=== PATIENT | female | born 1985 | race Asian ===

== ENCOUNTER 2024-07-26 12:55 | Outpatient (REF) | payer OTHER, SELFPAY ==
[2024-07-26 14:28] LABS: MANUAL DIFF FLAG NO
[2024-07-26 14:39] LABS: Basophils Absolute Auto 0.1 X10*3/uL (0.0-0.2); Basophils Percent Auto 0.9 % (0-2); Eosinophils Absolute Auto 0.2 X10*3/uL (0.0-0.4); Eosinophils Percent Auto 2.5 % (0-4); Hematocrit 39.7 % (37.0-47.0); Hemoglobin 13.4 g/dl (12.0-16.0); Imm Gran Abs Auto 0.02 X10*3/uL (0.00-0.03); Imm Gran Pct Auto 0.2 % (0.0-0.4); Lymphocytes Absolute Auto 2.3 X10*3/uL (1.2-4.9); Lymphocytes Percent Auto 28.5 % (20-40); Mean Corpuscular HGB Conc 33.8 g/dl (31.0-35.0); Mean Corpuscular Hemoglobin 32.1 pg (27.0-33.0); Mean Corpuscular Volume 95.2 fL (80.0-98.0); Mean Platelet Volume 9.6 fL (9.4-12.3); Monocytes Absolute Auto 0.4 X10*3/uL (0.1-1.2); Monocytes Percent Auto 5.3 % (2-11); Neutrophils Absolute Auto 5.1 x10*3/uL (2.0-8.3); Neutrophils Percent Auto 62.6 % (45-73); Platelet Count 377 X10*3/uL (160-400); Red Blood Count 4.17 X10*6/uL (4.20-5.50); Red Cell Distribution Width 11.4 % (11.0-16.0); White Blood Count 8.1 X10*3/uL (4.8-10.8)
[2024-07-26 14:55] LABS: C Reactive Protein 0.11 mg/dL (< or = 0.50)
[2024-07-26 15:16] LABS: Erythrocyte Sedimentation Rate 13 MM/HR (0-20)
== END 2024-07-26 12:56 | disposition home or self-care (01) ==
LOC: HO.CHCLDS 12:55
PROVIDERS: Visit Provider Internal Medicine
DX: R51.9 Headache, unspecified (principal)
CPT/HCPCS: 36415; 85025; 85652; 86140

== ENCOUNTER 2024-11-18 11:44 | Outpatient (REF) | payer OTHER, SELFPAY ==
--- OUTSIDE RECORDS SUMMARY | 2024-11-18 14:09 | XMS_ITS | Encounter Summary ---
Author Organization [employer] Address [address] [place] [address] Care Team Providers Care Waste Oil Pumper Name Role Phone Jake Bird MD Primary Care Prov ider Maya Wood Primary Care Provider [phone] Jake Bird MD Primary Care Prov ider Ely iSn MD Primary Care Provider [phone] Reason for Visit * Reason Onset Date Comments new pt visit 07/11/2024 Encounter Details Date Type Department Care Team (Late st Contact Info) Description 07/11/2024 Telephone [facility] MEDICINE [address] [place] [address] Jake Bird MD [address] [place], [place] [phone] new pt visit Social History Tobacco Use Types Packs/Day Years Used Date Smoking Tobacco: Never Assessed Comments Unknown Sex and Gender Information Value Date Recorded Sex Assigned at Female 07/07/2024 10:21 AM EDT Legal Sex Female 10:20 AM EDT Gender Identity Female 07/19/2024 11:54 AM EDT Sexual Orientation Straight 07/19/2024 11 :54 AM EDT documented as of this encounter Miscellaneous Notes * Telephone Encounter - Dorota Gorman - 07/25/2024 1:50 [address] EST Good [address]. Moses, in order to proceed with referrals chart note will require more details on why referral is being placed. Thank you. * Telephone Encounter - Sebastiankassi Mullinsarez - 07/11/2024 1:40 PM EDT TC placed to patient for scheduling of new patient visit. Agreed to 07/[address] Moses Medical Conditions: inflammation of temporal artery Apptmnt reminder and release form sent via mail . documented in this encounter Plan of Treatment Upcoming Encounters Date Type Department Care Team (Late st Contact Info) Description 01/06/2025 11:00 AM EDT Office Visit [facility] MEDICINE [address] [place] [address] Ely Sin MD [address] [place] [address] 02/03/2025 11:15 AM EDT Procedure Visit [address] [address] Ely Sin MD [address] [place] [address] documented as of this encounter Visit Diagnoses Not on filedocumented in this encounter Care Teams Waste Oil Pumper Relationship Specialty Start Date End Date Jake Bird MD [address] [place] [address] PCP - General Internal Medicine 07/19/24 09/06/24 Maya Wood FNP [address] [place] [address] PCP - General Family Medicine 09/07/24 10/05/24 Jake Bird MD [address] [place] [address] PCP - General Internal Medicine 10/06/24 10/12/24 Ely Sin MD [address] [place] [address] PCP - General Family Medicine 10/13/24 documented as of this encounter
--- OUTSIDE RECORDS SUMMARY | 2024-11-18 14:09 | XMS_ITS | Encounter Summary ---
Author Organization [employer] Address [address] [place] [address] [place] [address] Care Team Providers Care Behavioral Health Counselor Name Role Phone Jake Bird MD Primary Care Prov ider Maya Wood Primary Care Provider [phone] Jake Bird MD Primary Care Prov ider Ely Sin MD Primary Care Provider [phone] Encounter Details Date Type Department Care Team ([facility] st Contact Info) Description 08/08/2024 Telephone [facility] MED & PEDS [address] [place], [place] [phone] Jake Bird MD [address] [place], [place] [phone] Social History Tobacco Use Types Packs/Day Years Used Date Smoking Tobacco: Never Smokeless Tobacco: Never Alcohol Use Standard Drinks/Week Comments Never 0 (1 standard drink = 0.6 oz pur e alcohol) Comments Unknown Sex and Gender Information Value Date Recorded Sex Assigned at Female 07/07/2024 10:21 AM EDT Legal Sex Female 10:20 AM EDT Gender Identity Female 07/19/2024 11:54 AM EDT Sexual Orientation Straight 07/19/2024 11 :54 AM EDT documented as of this encounter Miscellaneous Notes * Telephone Encounter - Sandra Arevalo - 08/08/2024 12:04 PM EST Tc from pt stating she received a phone call. No documentation. Contact pt at [phone] documented in this encounter Plan of Treatment Upcoming Encounters Date Type Department Care Team (Late st Contact Info) Description 01/06/2025 11:00 AM EDT Office Visit [address] [address] Ely Sin MD [address] [place] [address] 02/03/2025 11:15 AM EDT Procedure Visit [address] [address] Ely Sin MD [address] [place] [address] documented as of this encounter Visit Diagnoses Not on filedocumented in this encounter Care Teams Behavioral Health Counselor Relationship Specialty Start Date End Date Jake Brid MD [address] [place] [address] PCP - General Internal Medicine 07/19/24 09/06/24 Maya Wood FNP [address] [place] [address] PCP - General Family Medicine 09/07/24 10/05/24 Jake Bird MD [address] [place] [address] PCP - General Internal Medicine 10/06/24 10/12/24 Ely Sin MD [address] [place] [address] PCP - General Family Medicine 10/13/24 documented as of this encounter
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
--- OUTSIDE RECORDS SUMMARY | 2024-11-18 14:09 | XMS_ITS | Encounter Summary ---
Author Organization [employer] Address [address] [place] [address] Care Team Providers Care Automotive Tire Technician Name Role Phone Ely Sin MD Primary Care Provider [phone] Reason for Visit * Reason Onset Date Comments MRI BRAIN ORDER 11/09/2024 Encounter Details Date Type Department Care Team (Late st Contact Info) Description 11/09/2024 Telephone [employer] [facility] [address] [place] [address] Ely Sin MD [address] [place] [address] MRI BRAIN ORDER Social History Tobacco Use Types Packs/Day Years [...] encounter Miscellaneous Notes * Telephone Encounter - Pao Desouza - 11/09/2024 3:34 PM EST Incoming fax from [facility], What is the indication for contrast? documented in this encounter Plan of Treatment Upcoming Encounters Date Type Department Care Team (Late st Contact Info) Description 01/06/2025 11:00 AM EDT Office Visit [address] [address] Ely Sin MD [address] [place] [address] 02/03/2025 11:15 AM EDT Procedure Visit [address] [phone] Ely Sin MD [address] [place], [place] [phone] documented as of this encounter Visit Diagnoses Not on filedocumented in this encounter Care Teams Automotive Tire Technician Relationship Specialty Start Date End Date Ely Sin MD [address] [place] [address] [phone] PCP - General Family Medicine 10/13/24 documented as of this encounter
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
--- OUTSIDE RECORDS SUMMARY | 2024-11-18 14:09 | XMS_ITS | Encounter Summary ---
Author Organization [employer] Address [address] [place] [address] 7 [place] [address] Care Team Providers Care Gas Flow Regulator Name Role Phone Ely Sin MD Primary Care Provider [phone] Reason for Visit * Reason Comments Pre-visit Planning (Unable to reach for PVP screening, LVM) Encounter Details Date Type Department Care Team ([facility] st Contact Info) Description 10/24/2024 Patient Outreach [facility] MEDICINE [address] [place] [address] Ely Sin MD [address] [place] [address] Pre-visit Planning ((Unable to reach for PVP screening, LVM)) Social History Tobacco Use Types Packs/Day Years [...] AM EDT documented as of this encounter Progress Notes * Teresa Zavala - 10/24/2024 8:40 AM EST KARY [place] placed outbound call to patient to complete pre-visit planning. No answer at this time. Patient name and were not confirmed. CC left voicemail requesting return call. Direct contact information provided. documented in this encounter Plan of Treatment Upcoming Encounters Date Type Department Care Team (Late st Contact Info) Description 01/06/2025 11:00 AM EDT Office Visit [facility] MEDICINE [address] [place] [address] Ely Sin MD [address] [place] [address] [phone] 02/03/2025 11:15 AM EDT Procedure Visit [address] [phone] Ely Sin MD [address] [place] [address] [phone] documented as of this encounter Visit Diagnoses Not on filedocumented in this encounter Care Teams Gas Flow Regulator Relationship Specialty Start Date End Date Ely Sin MD [address] [place] [address] [phone] PCP - General Family Medicine 10/13/24 documented as of this encounter
--- OUTSIDE RECORDS SUMMARY | 2024-11-18 14:09 | XMS_ITS | Encounter Summary ---
Author Organization [employer] Address [address] [place] [address] Care Team Providers Care Propeller Tester Name Role Phone Jake Bird MD Primary Care Prov ider Maya Wood Primary Care Provider [phone] Jake Bird MD Primary Care Prov ider Ely Sin MD Primary Care Provider [phone] Reason for Visit * Reason Onset Date Comments Created In Error 07/11/2024 Encounter Details Date Type Department Care Team (Late st Contact Info) Description 07/11/2024 Telephone [facility] MEDICINE [address] [place] [address] [phone] Maya Wood FNP [address] [place], [place] [phone] Created In Error Social History Tobacco Use Types Packs/Day Years Used Date Smoking Tobacco: Never Assessed Comments Unknown Sex and Gender Information Value Date Recorded Sex Assigned at Female 07/07/2024 10:21 AM EDT Legal Sex Female 10:20 AM EDT Gender Identity Female 07/19/2024 11:54 AM EDT Sexual Orientation Straight 07/19/2024 11 :54 AM EDT documented as of this encounter Plan of Treatment Upcoming Encounters Date Type Department Care Team (Late st Contact Info) Description 01/06/2025 11:00 AM EDT Office Visit [facility] [address] [place] [address] Ely Sin MD [address] [place], [place] [phone] 02/03/2025 11:15 AM EDT Procedure Visit [facility] [address] [place], [place] [phone] Ely Sin MD [address] [place], [place] [phone] documented as of this encounter Visit Diagnoses Not on filedocumented in this encounter Care Teams Propeller Tester Relationship Specialty Start Date End Date Jake Bird MD [address] [place] [address] PCP - General Internal Medicine 07/19/24 09/06/24 Maya Wood FNP [address] [place] [address] PCP - General Family Medicine 09/07/24 10/05/24 Jake Bird MD [address] [place] [address] PCP - General Internal Medicine 10/06/24 10/12/24 Ely Sin MD [address] [place] [address] PCP - General Family Medicine 10/13/24 documented as of this encounter
--- OUTSIDE RECORDS SUMMARY | 2024-11-18 14:09 | XMS_ITS | Encounter Summary ---
Author Organization [employer] Address [address] [place] [address] 20030 Care Team Providers Care Bowling Ball Assembler Name Role Phone Jake Bird MD Primary Care Prov ider Myaa Wood Primary Care Provider [phone] Jake Bird MD Primary Care Prov ider Ely Sin MD Primary Care Provider Reason for Visit * Reason Onset Date Comments Referral 08/15/2024 Encounter Details Date Type Department Care Team (Late st Contact Info) Description 08/15/2024 Telephone [facility] MED & PEDS [address] [place], [place] [phone] Jake Bird MD [address] [place], [place] [phone] Referral Social History Tobacco Use Types Packs/Day Years [...] encounter Miscellaneous Notes * Telephone Encounter - Gisela Zavala - 08/15/2024 3:13 PM EST TC from pt requesting status on neurology referral . Mud Worker informed referral was not able to be processed due to needing more information by pcp. Please call pt to clarify. documented in this encounter Plan of Treatment Upcoming Encounters Date Type Department Care Team (Late st Contact Info) Description 01/06/2025 11:00 AM EDT Office Visit [facility] MEDICINE [address] [place] [address] Ely Sin MD [address] [place] [address] 02/03/2025 11:15 AM EDT Procedure Visit [facility] [address] [place] [address] Ely Sin MD 230 [place] [address] documented as of this encounter Visit Diagnoses Not on filedocumented in this encounter Care Teams Bowling Ball Assembler Relationship Specialty Start Date End Date Jake Bird MD [address] [place] [address] PCP - General Internal Medicine 07/19/24 09/06/24 Maya Wood FNP [address] [place] [address] PCP - General Family Medicine 09/07/24 10/05/24 Jake Bird MD [address] [place] [address] PCP - General Internal Medicine 10/06/24 10/12/24 Ely Sin MD [address] [place] [address] PCP - General Family Medicine 10/13/24 documented as of this encounter
--- OUTSIDE RECORDS SUMMARY | 2024-11-18 14:09 | XMS_ITS | Encounter Summary ---
Author Organization [employer] Address [address] [place] [address] 7t [place] [address] Care Team Providers Care Safety Counselor Name Role Phone Ely Sin MD Primary Care Provider [phone] Encounter Details Date Type Department Care Team (Latest Contact Info) Description 11/04/2024 Travel Social History Tobacco Use Types Packs/Day Years [...] Description 01/06/2025 11:00 AM EDT Office Visit [facility] MEDICINE [address] [place] [address] Ely Sin MD [address] [place] [address] 02/03/2025 11:15 AM EDT Procedure Visit [facility] MED[facility]INE [address] [place] [address] Ely Sin MD [address] [place] [address] documented as of this encounter Visit Diagnoses Not on filedocumented in this encounter Care Teams Safety Counselor Relationship Specialty Start Date End Date Ely Sin MD 230 [place] [address] PCP - General Family Medicine 10/13/24 documented as of this encounter
--- OUTSIDE RECORDS SUMMARY | 2024-11-18 14:10 | XMS_ITS | Encounter Summary ---
Author Organization [employer] Address [address] [place] [address] 7 [place] [address] Care Team Providers Care Biology Instructor Name Role Phone Ely Sin MD Primary Care Provider [phone] Encounter Details Date Type Department Care Team (Late st Contact Info) Description 10/24/2024 Orders Only [facility] MEDICINE [address] [place] [address] ProviderRoman MD Social History Tobacco Use Types Packs/Day Years [...] Description 01/06/2025 11:00 AM EDT Office Visit [facility] MEDICINE [address] [place] [address] Ely Sin MD [address] [place] [address] 02/03/2025 11:15 AM EDT Procedure Visit [facility] MEDICINE [address] [place] [address] Ely Sin MD [address] [place] [address] [phone] documented as of this encounter Procedures Procedure Name Priority Date/Time Associated Diagnosis Comments PAP/HPV Routine 03/09/2020 8:05 AM EDT documented in this encounter Results * PAP/HPV (03/09/2020 8:05 AM EDT) us Historical Provider HEALTH MAINTENANCE Final Result documented in this encounter Visit Diagnoses Not on filedocumented in this encounter Care Teams Biology Instructor Relationship Specialty Start Date End Date Ely Sin MD 230 [place] [address] PCP - General Family Medicine 10/13/24 documented as of this encounter
--- OUTSIDE RECORDS SUMMARY | 2024-11-18 14:10 | XMS_ITS | Encounter Summary ---
Author Organization [employer] Address [address] [place] [address] [place] [address] Care Team Providers Care Mrp Controller Name Role Phone Ely Sin MD Primary Care Provider [phone] Encounter Details Date Type Department Care Team (Late st Contact Info) Description 10/13/2024 Orders Only [facility] CHC MED & PEDS 505 [place], [place] [phone] Jake Bird MD [address] [place] [address] Social History Tobacco Use Types Packs/Day Years [...] Description 01/06/2025 11:00 AM EDT Office Visit [facility] MEDICINE [address] [place] [address] [phone] Ely Sin MD [address] [place] [address] [phone] 02/03/2025 11:15 AM EDT Procedure Visit [facility] MEDICINE [address] [place] [address] Ely Sin MD 230 [place] [address] documented as of this encounter Visit Diagnoses Not on filedocumented in this encounter Care Teams Mrp Controller Relationship Specialty Start Date End Date Ely Sin MD [address] [place] [address] PCP - General Family Medicine 10/13/24 documented as of this encounter
[2024-11-18 16:30] LABS: Alanine Aminotransferase 19 U/L (0-31); Albumin Level 4.1 g/dL (3.5-5.0); Anion Gap 11 (12-20); Aspartate Amino Transferase 24 U/L (5-31); Bilirubin Total 0.5 mg/dL (0.0-1.0); Blood Urea Nitrogen 13 mg/dL (9-16); Calcium 9.1 mg/dL (8.4-10.2); Carbon Dioxide 25 mmol/L (22-29); Chloride 107 mmol/L (96-108); Cholesterol 190 mg/dL (<200); Estimated Glomerular Filt Rate > 60; Glucose Random 93 mg/dL (60-115); HDL Cholesterol 53 mg/dL (>40); LDL Cholesterol Calculated 123 mg/dL (<100); Potassium 4.1 mmol/L (3.3-5.1); Sodium 139 mmol/L (135-145); Total Protein 7.7 g/dL (6.5-8.0); Triglycerides 70 mg/dL (<150)
[2024-11-18 17:54] LABS: Alkaline Phosphatase 65 U/L (39-117)
== END 2024-11-18 11:45 | disposition home or self-care (01) ==
LOC: HO.CHCLDS 11:44
PROVIDERS: Visit Provider General Practice
DX: E66.3 Overweight (principal); Z13.29 Encounter for screening for other suspected endocrine disorder
CPT/HCPCS: 36415; 80053; 80061; 84443

== ENCOUNTER 2024-11-23 10:47 | Outpatient (REF) | payer OTHER, SELFPAY ==
--- OUTSIDE RECORDS SUMMARY | 2024-11-23 12:59 | XMS_ITS | Encounter Summary ---
Author Organization [email or web address] Address [address] [place] [address] 7 [place] [address] Care Team Providers Care Special Delivery Carrier Name Role Phone Ely Sin MD Primary Care Provider [phone] Reason for Visit * Reason Onset Date Comments MRI 11/23/2024 Encounter Details Date Type Department Care Team (Late st Contact Info) Description 11/23/2024 Telephone [facility] MEDICINE 230 [place] [address] Ely Sin MD 230 [place] [address] MRI Social History Tobacco Use Types Packs/Day Years [...] encounter Miscellaneous Notes * Telephone Encounter - Carolina Johnson RN - 11/23/2024 9:08 AM EST TC returned to patient [phone] in regards to below message. Patient did not answer, RN left VMrequesting CB to red team nurses. Patient to f/u PRN. * Telephone Encounter - Sandra Arevalo - 11/23/2024 8:46 AM EST Tc from pt requesting a a call back. Pt is inquiring if she is able to eat or drink before MRI. Contact pt at [phone] documented in this encounter Plan of Treatment Upcoming Encounters Date Type Department Care Team (Late st Contact Info) Description 01/06/2025 11:00 AM EDT Office Visit [address] [address] Ely Sin MD [address] [place] [address] 02/03/2025 11:15 AM EDT Procedure Visit [address] [address] Ely Sin MD [address] [place] [address] documented as of this encounter Visit Diagnoses Not on filedocumented in this encounter Care Teams Special Delivery Carrier Relationship Specialty Start Date End Date Ely Sin MD [address] [place] [address] PCP - General Family Medicine 10/13/24 documented as of this encounter
--- OUTSIDE RECORDS SUMMARY | 2024-11-23 12:59 | XMS_ITS | Encounter Summary ---
Author Organization [employer] Address [address] [place] [address] Care Team Providers Care Fruit Distributor Name Role Phone Ely Sin MD Primary Care Provider [phone] Reason for Visit * Reason Onset Date Comments MRI BRAIN ORDER 11/09/2024 Encounter Details Date Type Department Care Team (Late st Contact Info) Description 11/09/2024 Telephone [employer] [facility] [address] [place] [address] Ely Sin MD [address] [place] [address] MRI BRAIN ORDER Social History Tobacco Use [...] 11/09/2024 3:34 PM EST Incoming fax from [facility] What is the indication for contrast? documented in this encounter Plan of Treatment Upcoming Encounters Date Type Department Care Team (Late st Contact Info) Description 01/06/2025 11:00 AM EDT Office Visit [address] [address] Ely Sin MD 230 [place] [address] 02/03/2025 11:15 AM EDT Procedure Visit [address] [phone] Ely Sin MD [address] [place], [place] [phone] documented as of this encounter Visit Diagnoses Not on filedocumented in this encounter Care Teams Fruit Distributor Relationship Specialty Start Date End Date Ely Sin MD [address] [place] [address] [phone] PCP - General Family Medicine 10/13/24 documented as of this encounter
--- OUTSIDE RECORDS SUMMARY | 2024-11-23 12:59 | XMS_ITS | Encounter Summary ---
Author Organization [employer] Address [address] [place] [address] 7 [place] [address] Care Team Providers Care Computer Information Systems Professor Name Role Phone Ely Sin MD Primary Care Provider [phone] Reason for Visit * Reason Comments Pre-visit Planning (Unable to reach for PVP screening, LVM) Encounter Details Date Type Department Care Team ([facility] st Contact Info) Description 10/24/2024 Patient Outreach [facility] 230 [place] [address] Ely Sin MD 230 [place] [address] Pre-visit Planning ((Unable to reach for PVP [...] Description 01/06/2025 11:00 AM EDT Office Visit [facility] [address] [place] [address] Ely Sin MD [address] [place] [address] [phone] 02/03/2025 11:15 AM EDT Procedure Visit [address] [phone] Ely Sin MD [address] [place] [address] [phone] documented as of this encounter Visit Diagnoses Not on filedocumented in this encounter Care Teams Computer Information Systems Professor Relationship Specialty Start Date End Date Ely Sin MD [address] [place] [address] [phone] PCP - General Family Medicine 10/13/24 documented as of this encounter
--- OUTSIDE RECORDS SUMMARY | 2024-11-23 12:59 | XMS_ITS | Encounter Summary ---
Author Organization [employer] Address [address] [place] [address] 7t [place] [address] Care Team Providers Care Customer Service Administrator Name Role Phone Ely Sin MD Primary Care Provider [phone] Encounter Details Date Type Department Care Team [...] Description 01/06/2025 11:00 AM EDT Office Visit [facility] MEDICINE [address] [place] [address] Ely Sin MD [address] [place] [address] 02/03/2025 11:15 AM EDT Procedure Visit [facility] MEDICINE [address] [place] [address] Ely Sin MD [address] [place] [address] documented as of this encounter Visit Diagnoses Not on filedocumented in this encounter Care Teams Customer Service Administrator Relationship Specialty Start Date End Date Ely Sin MD 230 [place] [address] PCP - General Family Medicine 10/13/24 documented as of this encounter
--- OUTSIDE RECORDS SUMMARY | 2024-11-23 12:59 | XMS_ITS | Encounter Summary ---
Author Organization [employer] Address [address] 7t [place] [address] Care Team Providers Care Retail Associate Name Role Phone Ely Sin MD Primary Care Provider Encounter Details Date Type Department Care Team (Late st Contact Info) Description 11/23/2024 Telephone [facility] CHC MED & PEDS [address] [place], [place] [phone] Ely Sin MD 230 [place] [address] Social History Tobacco Use Types Packs/Day Years [...] encounter Miscellaneous Notes * Telephone Encounter - Eva Kruse MA - 11/23/2024 10:34 AM EST Called mri department in [facility] to find out if patient needs to be fasting for test. Spoke to patti which stated pt doesn't have to be fasting or no other preparations needed for test. Called pt and let her know she doesn't have to be fasting for test, also gave pt [facility] address- [address] [place] [address] on the first floor next to the lab, and time of appt-1:45 pm. documented in this encounter Plan of Treatment Upcoming Encounters Date Type Department Care Team (Late st Contact Info) Description 01/06/2025 11:00 AM EDT Office Visit [facility] MEDICINE [address] [place] [address] Ely Sin MD [address] [place] [address] 02/03/2025 11:15 AM EDT Procedure Visit [facility] MEDICINE [address] [place] [address] Ely Sin MD [address] [place] [address] [phone] documented as of this encounter Visit Diagnoses Not on filedocumented in this encounter Care Teams Retail Associate Relationship Specialty Start Date End Date Ely Sin MD [address] [place] [address] [phone] PCP - General Family Medicine 10/13/24 documented as of this encounter
--- OUTSIDE RECORDS SUMMARY | 2024-11-23 12:59 | XMS_ITS | Encounter Summary ---
Author Organization [employer] Address [address] [place] [address] 7 [place] [address] Care Team Providers Care Home Care Assistant Name Role Phone Ely Sin MD Primary Care Provider [phone] Reason for Referral * Imaging (Routine) - Authorized Specialty Diagnoses / Procedures Referred By Contac t Referred To Contact Radiology Diagnoses New daily persistent headache Procedures Mr Brain w/ and w/o Contrast Ely Sin MD [address] [place] [address] Phone: tel: fax: [address] Phone: tel: fax: Referral ID Status Reason Start Date Expiration Date V isits Requested Visits Authorized [id number] Authorized 11/07/2024 11/07/2025 1 1 Reason for Visit * Reason Comments transfer patient Encounter Details Date Type Department Care Team (Late st Contact Info) Description 11/04/2024 10:00 AM EST Office Visit [facility] MEDICINE 230 [place], [place] [phone] Ely Sin MD 230 [place], [place] [phone] New daily persistent headache (Primary Dx); Dietary [...] visit, or hospitalization. Prior patient of Dr. Huratdo at [place]. Acute Concerns: R sided PERRY since Jun [...] or sooner prn Allergies Allergen Reactions Aspirin [place] Oil Unknown orange juice Penicillins Other Reaction(s): [...] Description 01/06/2025 11:00 AM EDT Office Visit [facility] MEDICINE [address] [place] [address] [phone] Ely Sin MD [address] [place] [address] 02/03/2025 11:15 AM EDT Procedure Visit [address] [address] Ely Sin MD 230 [place] [address] Scheduled Orders Name Type Priority Associated Diagnoses Orde r Schedule Mr Brain w/ and w/o Contrast Imaging Routine New daily persistent headache Expected: 11/07/2024, Expires: 11/07/2025 documented as of this encounter Procedures Procedure Name Priority Date/Time Associated Diagnosis Comments TSH W/REFLEX TO FT4 Routine 11/18/2024 1 1:51 AM EST Overweight LIPID PANEL, STANDARD Routine 11/18/2024 11:51 AM EST Overweight COMPREHENSIVE METABOLIC PANEL Routine 11/18/2024 11:51 AM EST Overweight documented in this encounter Results * (ABNORMAL) Lipid Panel, Standard (11/18/2024 11:51 AM EST) Triglycerides 70 <150 mg/dL [facility] Comment:Desirable Triglyceri de: less than 150 mg/dLBorderline High Triglyceride 150-199 mg/dLHigh Triglyceride: 200-499 mg/dLVery High Triglyceride: greater than or equal to 5OO mg/dL Cholesterol 190 <200 mg/dL [facility] Comment:Desirable Cholestero l: less than 200 mg/dLBorderline High Cholesterol: 200-239 mg/dLHigh Cholesterol: greater than 239 mg/dL LDL Cholesterol Calculated 123(H) <100 mg/dL [facility] Comment:Desirable LDL: less than 100 mg/dLNear Optimal/Above Optimal LDL: 110- 129 mg/dLBorderline High LDL: 130-159 mg/dLHigh LDL: 160-189 mg/dLVery High LDL: greater than or equal to 190 mg/dL HDL Cholesterol 53 >40 mg/dL [facility] Comment:Desirable HDL: great er than 40 mg/dL Note: This HDL assay may give artificially low results in patients with liver disease. Blood Venous blood specimen / Unknown 11/18/2024 11:51 AM EST 11/18/2024 2:33 PM EST Ely Sin MD LAB BLOOD ORDERABLES Final Res ult Performing Organization Address City/[facility]/ZIP Co de Phone Number [facility] [address] [place] [phone] * TSH W/Reflex to FT4 (11/18/2024 11:51 AM EST) TSH reflex Free T4 0.80 0.32 - 4.0 uIU/mL [facility] Blood Venous blood specimen / Unknown 11/18/2024 11:51 AM EST 11/18/2024 2:33 PM EST Ely Sin MD LAB BLOOD ORDERABLES Final Res ult Performing Organization Address City/[facility]/ZIP Co de Phone Number [facility] [address] [place] [phone] * (ABNORMAL) Comprehensive Metabolic Panel (11/18/2024 11:51 AM EST) Sodium 139 135 - 145 mmol/L [facility] Potassium 4.1 3.3 - 5.1 mmol/L [facility] Chloride 107 96 - 108 mmol/L [facility] Carbon Dioxide 25 22 - 29 mmol/L [facility] Anion Gap 11(L) 12 - 20 [facility] Urea Nitrogen (BUN) 13 9 - 16 mg/dL [facility] Creatinine, Serum 0.63 0.5 - 1.4 mg/dL [facility] Estimated Glomerular Filt Rate >60 [facility] Comment:Chronic Kidney Disea se: Estimated GFR < 60 mL/min/1.16c4Ossndh Kidney Disease: Estimated GFR < 15 mL/min/1.73m2 Glucose 93 60 - 115 mg/dL [facility] Calcium 9.1 8.4 - 10.2 mg/dL [facility] Bilirubin, Total 0.5 0.0 - 1.0 mg/dL [facility] Aspartate Amino Transferase 24 5 - 31 U/L [facility] Alanine Aminotransferase 19 0 - 31 U/L [facility] Total Protein 7.7 6.5 - 8.0 g/dL [facility] Albumin Level 4.1 3.5 - 5.0 g/dL [facility] Alkaline Phosphatase 65 39 - 117 U/L [facility] Blood Venous blood specimen / Unknown 11/18/2024 11:51 AM EST 11/18/2024 2:33 PM EST us Ely Sin MD LAB BLOOD ORDERABLES Final Res ult [facility] [address] [place] [phone] documented in this encounter Visit Diagnoses Diagnosis New daily persistent headache- Primary Dietary counseling Dietary surveillance and counseling Exercise counseling Overweight Temporal pain documented in this encounter Care Teams Home Care Assistant Relationship Specialty Start Date End Date Ely Sin MD [address] [place] [address] PCP - General Family Medicine 10/13/24 documented as of this encounter
--- OUTSIDE RECORDS SUMMARY | 2024-11-23 13:00 | XMS_ITS | Encounter Summary ---
Author Organization [employer] Address [address] [place] [address] 7 [place] [address] Care Team Providers Care Lime Burner Name Role Phone Ely Sin MD Primary Care Provider [phone] Encounter Details Date Type Department Care Team (Late st Contact Info) Description 10/24/2024 Orders Only [facility] MEDICINE [address] [place] [address] ProviderRoman MD Social History Tobacco Use Types [...] Description 01/06/2025 11:00 AM EDT Office Visit [facility] MEDICINE [address] [place] [address] Ely Sin MD [address] [place] [address] 02/03/2025 11:15 AM EDT Procedure Visit [facility] MED[facility]INE [address] [place] [address] Ely Sin MD [address] [place] [address] documented as of this encounter Procedures Procedure Name Priority Date/Time Associated Diagnosis Comments PAP/HPV Routine 03/09/2020 8:05 AM EDT documented in this encounter Results * PAP/HPV (03/09/2020 8:05 AM EDT) us Historical Provider HEALTH MAINTENANCE Final Result documented in this encounter Visit Diagnoses Not on filedocumented in this encounter Care Teams Lime Burner Relationship Specialty Start Date End Date Ely Sin MD [address] [place] [address] PCP - General Family Medicine 10/13/24 documented as of this encounter
--- OUTSIDE RECORDS SUMMARY | 2024-11-23 13:00 | XMS_ITS | Encounter Summary ---
Author Organization [employer] Address [address] [place] [address] Care Team Providers Care Board Setter Name Role Phone Jake Bird MD Primary Care Prov ider Maya Wood Primary Care Provider [phone] Jake Bird MD Primary Care Prov ider Ely Sin MD Primary Care Provider [phone] Reason for Visit * Reason Onset Date Comments Referral 08/15/2024 Encounter Details Date Type Department Care Team (Late st Contact Info) Description 08/15/2024 Telephone [facility] MED & PEDS [address] [place], [place] [phone] Jake Bird MD [address] [place], [place] [phone] Referral Social History Tobacco Use Types Packs/Day [...] pt requesting status on neurology referral . Marine Painter informed referral was not able to be processed due to needing more information by pcp. Please call pt to clarify. documented in this encounter Plan of Treatment Upcoming Encounters Date Type Department Care Team (Late st Contact Info) Description 01/06/2025 11:00 AM EDT Office Visit [facility] MEDICINE [address] [place] [address] Ely Sin MD [address] [place] [address] 02/03/2025 11:15 AM EDT Procedure Visit [facility] [address] [place] [address] Ely Sin MD 230 [place] [address] documented as of this encounter Visit Diagnoses Not on filedocumented in this encounter Care Teams Board Setter Relationship Specialty Start Date End Date Jake Bird MD [address] [place] [address] PCP - General Internal Medicine 07/19/24 09/06/24 Maya Wood FNP [address] [place] [address] PCP - General Family Medicine 09/07/24 10/05/24 Jake Bird MD 505 [place] [address] PCP - General Internal Medicine 10/06/24 10/12/24 Ely Sin MD [address] [place] [address] PCP - General Family Medicine 10/13/24 documented as of this encounter"
--- OUTSIDE RECORDS SUMMARY | 2024-11-23 13:00 | XMS_ITS | Encounter Summary ---
Author Organization [employer] Address [address] [place] [address] Care Team Providers Care Thermostat Maker Name Role Phone Jake Bird MD Primary Care Prov ider Maya Wood Primary Care Provider [phone] Jake Bird MD Primary Care Prov ider Ely Sin MD Primary Care Provider [phone] Encounter Details Date Type Department Care Team ([facility] st Contact Info) Description 08/08/2024 Telephone [facility] MED [facility] PEDS 505 [place], [place] [phone] Jake Bird MD 505 [place], [place] [phone] Social History Tobacco Use Types Packs/Day Years [...] phone call. No documentation. Contact pt at [phone] documented in this encounter Plan of Treatment Upcoming Encounters Date Type Department Care Team (Late st Contact Info) Description 01/06/2025 11:00 AM EDT Office Visit [address] [address] Ely Sin MD [address] [place] [address] 02/03/2025 11:15 AM EDT Procedure Visit [address] [address] Ely Sin MD [address] [place] [address] documented as of this encounter Visit Diagnoses Not on filedocumented in this encounter Care Teams Thermostat Maker Relationship Specialty Start Date End Date Jake Bird MD [address] [place] [address] PCP - General Internal Medicine 07/19/24 09/06/24 Maya Wood FNP [address] [place] [address] PCP - General Family Medicine 09/07/24 10/05/24 Jake Bird MD [address] [place] [address] PCP - General Internal Medicine 10/06/24 10/12/24 Ely Sin MD [address] [place] [address] PCP - General Family Medicine 10/13/24 documented as of this encounter
--- OUTSIDE RECORDS SUMMARY | 2024-11-23 13:00 | XMS_ITS | Clinical Summary ---
Author Organization [employer] Address [address] [place] [address] 7 [place] [address] Care Team Providers Care Rubber Heel And Sole Press Tender Name Role Phone Ely Sin MD Primary Care Provider [phone] Allergies Active Allergy Reactions Criticality Noted Date Comments Aspirin Medium 03/09/2020 [place] Oil Unknown 11/07/2024 orange juice Penicillins 09/26/2019 [...] Encounters Date Type Department Care Team Description 11/23/2024 Telephone [facility] [address] [place], [place] [phone] Ely Sin MD 11/23/2024 Telephone [facility] [address] [place] [address] Ely Sin MD MRI 11/09/2024 Telephone [facility] [address] [place] [address] [phone] Ely Sin MD MRI BRAIN ORDER 11/04/2024 10:00 AM EST Office Visit [address] [address] Ely Sin MD New daily persistent headache (Primary Dx); Dietary counseling; Exercise counseling; Overweight; Temporal pain 11/04/2024 Travel 10/24/2024 Patient Outreach [address] [phone] Ely Sin MD Pre-visit Planning ((Unable to reach for PVP screening, LVM)) 10/24/2024 Orders Only [address] [address] ProviderRoman MD 10/13/2024 Orders Only [facility] [address] [place] [address] Jake Bird MD 10/13/2024 Telephone [facility] [address] [place] [address] Jake Bird MD transfer request 09/06/2024 Telephone [facility] [address] [place] [address] Dwight Rea DDS from Last 3 Months [...] Description 01/06/2025 11:00 AM EDT Office Visit [facility] [address] [place] [address] [place] [phone] Ely Sin MD [address] [place], [place] [phone] 02/03/2025 11:15 AM EDT Procedure Visit [facility] [address] [place], [place] [phone] Ely Sin MD [address] [place], [place] [phone] Health Maintenance Due Date Last Done Comments Depression Screening 1983 HIV Screening 1983 SDOH Screening 1983 Alcohol/Substance Use Screening 1995 Hepatitis C Screening 2001 Hepatitis B Vaccines (1 of 3 - 19+ 3-dose series) 2002 Mammogram 2023 COVID-19 Vaccine ( - 2023-2 5 season) 2024 Cervical Cancer [...] Procedure Name Priority Date/Time Associated Diagnosis Comments LIPID PANEL, STANDARD Routine 11/18/2024 11:51 AM EST Overweight TSH W/REFLEX TO FT4 Routine 11/18/2024 1 1:51 AM EST Overweight COMPREHENSIVE METABOLIC PANEL Routine 11/18/2024 11:51 AM EST Overweight HM PAP/HPV Routine 03/09/2020 8:05 AM EDT from Last 3 Months or Most Recently Relevant to Health Maintenance Results * TSH W/Reflex to FT4 (11/18/2024 11:51 AM EST) TSH reflex Free T4 0.80 0.32 - 4.0 uIU/mL [facility] Blood Venous blood specimen / Unknown 11/18/2024 11:51 AM EST 11/18/2024 2:33 PM EST us Ely Sin MD LAB BLOOD ORDERABLES Final Res ult [facility] [address] [place] [address] [phone] * (ABNORMAL) Lipid Panel, Standard (11/18/2024 11:51 AM EST) Triglycerides 70 <150 mg/dL [facility] Comment:Desirable Triglyceri de: less than 150 mg/dLBorderline High Triglyceride 150-199 mg/dLHigh Triglyceride: 200-499 mg/dLVery High Triglyceride: greater than or equal to 5OO mg/dL Cholesterol 190 <200 mg/dL [facility] Comment:Desirable Cholestero l: less than 200 mg/dLBorderline High Cholesterol: 200-239 mg/dLHigh Cholesterol: greater than 239 mg/dL LDL Cholesterol Calculated 123(H) <100 mg/dL [facility] Comment:Desirable LDL: less than 100 mg/dLNear Optimal/Above Optimal LDL: 110- 129 mg/dLBorderline High LDL: 130-159 mg/dLHigh LDL: 160-189 mg/dLVery High LDL: greater than or equal to 190 mg/dL HDL Cholesterol 53 >40 mg/dL [facility] Comment:Desirable HDL: great er than 40 mg/dL Note: This HDL assay may give artificially low results in patients with liver disease. Blood Venous blood specimen / Unknown 11/18/2024 11:51 AM EST 11/18/2024 2:33 PM EST us Ely Sin MD LAB BLOOD ORDERABLES Final Res ult [facility] [address] [place] [address] [phone] * (ABNORMAL) Comprehensive Metabolic Panel (11/18/2024 11:51 AM EST) Sodium 139 135 - 145 mmol/L [facility] Potassium 4.1 3.3 - 5.1 mmol/L [facility] Chloride 107 96 - 108 mmol/L [facility] Carbon Dioxide 25 22 - 29 mmol/L [facility] Anion Gap 11(L) 12 - 20 [facility] Urea Nitrogen (BUN) 13 9 - 16 mg/dL [facility] Creatinine, Serum 0.63 0.5 - 1.4 mg/dL [facility] Estimated Glomerular Filt Rate >60 [facility] Comment:Chronic Kidney Disea se: Estimated GFR < 60 mL/min/[id number] Kidney Disease: Estimated GFR < 15 mL/min/1.73m2 Glucose 93 60 - 115 mg/dL [facility] Calcium 9.1 8.4 - 10.2 mg/dL [facility] Bilirubin, Total 0.5 0.0 - 1.0 mg/dL [facility] Aspartate Amino Transferase 24 5 - 31 U/L [facility] Alanine Aminotransferase 19 0 - 31 U/L [facility] Total Protein 7.7 6.5 - 8.0 g/dL [facility] Albumin Level 4.1 3.5 - 5.0 g/dL [facility] Alkaline Phosphatase 65 39 - 117 U/L [facility] Blood Venous blood specimen / Unknown 11/18/2024 11:51 AM EST 11/18/2024 2:33 PM EST Ely Sin MD LAB BLOOD ORDERABLES Final Res ult [facility] [address] [place] [address] [phone] * HM PAP/HPV (03/09/2020 8:05 AM EDT) Historical Provider HEALTH MAINTENANCE Final Result from Last 3 Months or Most Recently Relevant to Health Maintenance Insurance [employer] PPO DENTAL - [employer] DENTAL PPO Care Teams Rubber Heel And Sole Press Tender Relationship Specialty Start Date End Date Ely Sin MD [address] [place] [address] PCP - General Family Medicine 10/13/24
--- OUTSIDE RECORDS SUMMARY | 2024-11-23 13:00 | XMS_ITS | Encounter Summary ---
Author Organization [employer] Address [address] [place] [address] Care Team Providers Care Consumer Services Advisor Name Role Phone Jake Bird MD Primary Care Prov ider Maya Wood Primary Care Provider [phone] Jake Bird MD Primary Care Prov ider Ely Sin MD Primary Care Provider [phone] Reason for Visit * Reason Onset Date Comments Created In Error 07/11/2024 Encounter Details Date Type Department Care Team (Late st Contact Info) Description 07/11/2024 Telephone [facility] [address] [place] [address] [phone] Maya Wood FNP [address] [place], [place] [phone] Created In Error Social History Tobacco Use [...] Description 01/06/2025 11:00 AM EDT Office Visit [facility] [address] [place] [address] Ely Sin MD 230 [place], [place] [phone] 02/03/2025 11:15 AM EDT Procedure Visit [facility] [address] [place], [place] [phone] Ely Sin MD 230 [place], [place] [phone] documented as of this encounter Visit Diagnoses Not on filedocumented in this encounter Care Teams Consumer Services Advisor Relationship Specialty Start Date End Date Jake Bird MD 505 [place] [address] PCP - General Internal Medicine 07/19/24 09/06/24 Maya Wood FNP [address] [place] [address] PCP - General Family Medicine 09/07/24 10/05/24 Jake Bird MD [address] [place] [address] PCP - General Internal Medicine 10/06/24 10/12/24 Ely Sin MD [address] [place] [address] PCP - General Family Medicine 10/13/24 documented as of this encounter
--- OUTSIDE RECORDS SUMMARY | 2024-11-23 13:00 | XMS_ITS | Encounter Summary ---
Author Organization [employer] Address [address] [place] [address] Care Team Providers Care Singing Messenger Name Role Phone Jake Bird MD Primary Care Prov ider Maya Wood Primary Care Provider Jake Bird MD Primary Care Prov ider Ely Sin MD Primary Care Provider [phone] Reason for Visit * Reason Onset Date Comments new pt visit 07/11/2024 Encounter Details Date Type Department Care Team (Late st Contact Info) Description 07/11/2024 Telephone [facility] [address] [place] [address] Jake Bird MD [address] [place], [place] [phone] new pt visit Social History Tobacco Use [...] Description 01/06/2025 11:00 AM EDT Office Visit [facility] [address] [place] [address] Ely Sin MD [address] [place] [address] 02/03/2025 11:15 AM EDT Procedure Visit [address] [address] Ely Sin MD [address] [place] [address] documented as of this encounter Visit Diagnoses Not on filedocumented in this encounter Care Teams Singing Messenger Relationship Specialty Start Date End Date Jake Bird MD [address] [place] [address] PCP - General Internal Medicine 07/19/24 09/06/24 Maya Wood FNP [address] [place] [address] PCP - General Family Medicine 09/07/24 10/05/24 Jake Bird MD [address] [place] [address] PCP - General Internal Medicine 10/06/24 10/12/24 Ely Sin MD 230 [place] [address] PCP - General Family Medicine 10/13/24 documented as of this encounter
--- OUTSIDE RECORDS SUMMARY | 2024-11-23 13:00 | XMS_ITS | Encounter Summary ---
Author Organization [employer] Address [address] [place] [address] [place] [address] Care Team Providers Care Loan Interviewer Name Role Phone Ely Sin MD Primary Care Provider [phone] Encounter Details Date Type Department Care Team (Late st Contact Info) Description 10/13/2024 Orders Only [facility] PED[facility] [address] [place], [place] [phone] Jake Bird MD 505 [place] [address] Social History Tobacco Use Types Packs/Day Years [...] Description 01/06/2025 11:00 AM EDT Office Visit [facility] [address] [place] [address] [phone] Ely Sin MD [address] [place] [address] 02/03/2025 11:15 AM EDT Procedure Visit [facility] [address] [place] [address] Ely Sin MD [address] [place] [address] documented as of this encounter Visit Diagnoses Not on filedocumented in this encounter Care Teams Loan Interviewer Relationship Specialty Start Date End Date Ely Sin MD [address] [place] [address] PCP - General Family Medicine 10/13/24 documented as of this encounter
[2024-11-23] MEDS: gadobutroL 7.5 ML VIAL IVPUSH (15:24)
== END 2024-11-23 10:48 | disposition home or self-care (01) ==
LOC: HO.MRI 10:47
PROVIDERS: PCP General Practice; Visit Provider General Practice
DX: G44.52 New daily persistent headache (NDPH) (principal)
CPT/HCPCS: 70553; A9585

== ENCOUNTER → 2024-11-23 13:50 | Outpatient (BNV) | payer OTHER, SELFPAY | PROVIDERS: PCP General Practice; Visit Provider Radiology Diagnostic Radiology | DX: G44.52 New daily persistent headache (NDPH) (principal) | CPT/HCPCS: 70553 ==

== ENCOUNTER 2025-01-19 09:52 | Outpatient (REF) | payer OTHER, SELFPAY ==
--- OUTSIDE RECORDS SUMMARY | 2025-01-19 11:05 | XMS_ITS | Encounter Summary ---
Author Organization [employer] Address [address] [place] [address] [place] [address] Care Team Providers Care Auto Washer Name Role Phone Jake Bird MD Primary Care Prov ider Maya Wood Primary Care Provider [phone] Jake Bird MD Primary Care Prov ider Ely Sin MD Primary Care Provider [phone] Encounter Details Date Type Department Care Team ([facility] st Contact Info) Description 08/08/2024 Telephone [facility] & PEDS [address] [place], [place] [phone] Jake Bird MD [address] [place], [place] [phone] Social History Tobacco Use Types Packs/Day Years [...] phone call. No documentation. Contact pt at [phone] documented in this encounter Plan of Treatment Upcoming Encounters Date Type Department Care Team (Late st Contact Info) Description 02/03/2025 11:15 AM EDT Procedure Visit [facility] [address] [place] [address] Ely Sin MD [address] [place] [address] documented as of this encounter Visit Diagnoses Not on filedocumented in this encounter Care Teams Auto Washer Relationship Specialty Start Date End Date Jake Bird MD [address] [place] [address] PCP - General Internal Medicine 07/19/24 09/06/24 Maya Wood FNP [address] [place] [address] PCP - General Family Medicine 09/07/24 10/05/24 Jake Bird MD [address] [place] [address] PCP - General Internal Medicine 10/06/24 10/12/24 Ely Sin MD [address] [place] [address] PCP - General Family Medicine 10/13/24 documented as of this encounter
--- OUTSIDE RECORDS SUMMARY | 2025-01-19 11:05 | XMS_ITS | Encounter Summary ---
Author Organization [employer] Address [address] [place] [address] Care Team Providers Care Pr Specialist Name Role Phone Jake Bird MD Primary Care Prov ider Maya Wood Primary Care Provider [phone] Jake Bird MD Primary Care Prov ider Ely Sin MD Primary Care Provider Reason for Visit * Reason Onset Date Comments Referral 08/15/2024 Encounter Details Date Type Department Care Team (Late st Contact Info) Description 08/15/2024 Telephone [facility] MED & PEDS [address] [place], [place] [phone] Jake Bird MD [address] [place], [place] [phone] Referral Social History Tobacco Use Types Packs/Day [...] pt requesting status on neurology referral . Technical Service Rep informed referral was not able to be processed due to needing more information by pcp. Please call pt to clarify. documented in this encounter Plan of Treatment Upcoming Encounters Date Type Department Care Team (Late st Contact Info) Description 02/03/2025 11:15 AM EDT Procedure Visit [facility] [address] [place], [place] [phone] Ely Sin MD 230 [place] [address] documented as of this encounter Visit Diagnoses Not on filedocumented in this encounter Care Teams Pr Specialist Relationship Specialty Start Date End Date Jake Bird MD 505 [place] [address] PCP - General Internal Medicine 07/19/24 09/06/24 Maya Wood FNP [address] [place] [address] PCP - General Family Medicine 09/07/24 10/05/24 Jake Bird MD [address] [place] [address] PCP - General Internal Medicine 10/06/24 10/12/24 Ely Sin MD [address] [place] [address] PCP - General Family Medicine 10/13/24 documented as of this encounter
--- OUTSIDE RECORDS SUMMARY | 2025-01-19 11:05 | XMS_ITS | Encounter Summary ---
Author Organization [employer] Address [address] [place] [address] 7[address] [place] [address] Care Team Providers Care Arts Education Teacher Name Role Phone Ely Sin MD Primary Care Provider [phone] Reason for Visit * Reason Onset Date Comments Results 12/09/2024 Encounter Details Date Type Department Care Team ([facility] st Contact Info) Description 12/09/2024 Telephone [facility] [address] [place], [place] [phone] Ely Sin MD [address] [place] [address] Results Social History Tobacco Use Types Packs/Day Years [...] encounter Miscellaneous Notes * Telephone Encounter - Priya Stout RN - 12/09/2024 1:44 PM EDT TC returned to pt. Informed pt. MRI of head/ brain from 11/23/24 came back unremarkable. Pt. Is inquiring on if PCP can prescribe a medication for daily headaches that are worsening, currently using ibuprofen with minimal positive effect. Also inquiring if there are any more diagnostic tests that need to be done. Advised pt. Message would be sent to PCP Merrick. F/up is scheduled for 01/06/25 * Telephone Encounter - Maco Leiva - 12/09/2024 1:28 PM EDT TC from pt requesting call back regarding Results. Type of results: CT Scan Date when done: 11/28/24 [address]: [facility] Contact pt at [phone] Pt asked if its possible if she doesn't answer the call if the Nurse can leave a Direct Phone number. documented in this encounter Plan of Treatment Upcoming Encounters Date Type Department Care Team (Late st Contact Info) Description 02/03/2025 11:15 AM EDT Procedure Visit [facility] [address] [place], [place] [phone] Ely Sin MD [address] [place] [address] documented as of this encounter Visit Diagnoses Not on filedocumented in this encounter Care Teams Arts Education Teacher Relationship Specialty Start Date End Date Ely Sin MD [address] [place], [place] [phone] PCP - General Family Medicine 10/13/24 documented as of this encounter
--- OUTSIDE RECORDS SUMMARY | 2025-01-19 11:05 | XMS_ITS | Encounter Summary ---
Author Organization [employer] Address [address] [place] [address] 7 [place] [address] Care Team Providers Care Vegetable Tester Name Role Phone Ely Sin MD Primary Care Provider [phone] Encounter Details Date Type Department Care Team (Late st Contact Info) Description 10/24/2024 Orders Only [facility] [address] [place] [address] ProviderRoman MD Social History Tobacco Use Types [...] Description 02/03/2025 11:15 AM EDT Procedure Visit [facility] [address] [place] [address] Ely Sin MD [address] [place] [address] documented as of this encounter Procedures Procedure Name Priority Date/Time Associated Diagnosis Comments HM PAP/HPV Routine 03/09/2020 8:05 AM EDT documented in this encounter Results * HM PAP/HPV (03/09/2020 8:05 AM EDT) us Historical Provider HEALTH MAINTENANCE Final Result documented in this encounter Visit Diagnoses Not on filedocumented in this encounter Care Teams Vegetable Tester Relationship Specialty Start Date End Date Ely Sin MD [address] [place] [address] PCP - General Family Medicine 10/13/24 documented as of this encounter
--- OUTSIDE RECORDS SUMMARY | 2025-01-19 11:05 | XMS_ITS | Encounter Summary ---
Author Organization [employer] Address [address] [place] [address] [place] [address] Care Team Providers Care Loss Control Consultant Name Role Phone Ely Sin MD Primary Care Provider [phone] Encounter Details Date Type Department Care Team (Late st Contact Info) Description 10/13/2024 Orders Only [facility]ED[facility] [address] [place] [address] Jake Bird MD [address] [place] [address] Social History Tobacco Use Types Packs/Day Years [...] Description 02/03/2025 11:15 AM EDT Procedure Visit [facility] [address] [place] [address] Ely Sin MD [address] [place] [address] documented as of this encounter Visit Diagnoses Not on filedocumented in this encounter Care Teams Loss Control Consultant Relationship Specialty Start Date End Date Ely Sin MD [address] [place] [address] PCP - General Family Medicine 10/13/24 documented as of this encounter
--- OUTSIDE RECORDS SUMMARY | 2025-01-19 11:05 | XMS_ITS | Clinical Summary ---
Author Organization [employer] Address [address] [place] [address] 7 [place] [address] Care Team Providers Care Memory Care Program Resident Name Role Phone Ely Sin MD Primary Care Provider [phone] Allergies Active Allergy Reactions Criticality Noted Date Comments Aspirin Medium 03/09/2020 Harding Oil Unknown 11/07/2024 orange juice Penicillins 09/26/2019 Other Reaction(s): Other, Theophylline Theophylline 09/26/2019 Tomato Unknown 11/07/2024 tomato allergenic extract Medications * This document contains information received from the source organization and may not represent a complete record from that organization. calcium 200 MG tablet Active ascorbic acid [...] Overview (11/07/2024): Hx GERD ? dx in 2001 Encounters * This document contains information received from the source organization and may not represent a complete record from that organization. Date Type Department Care Team Description 01/06/2025 11:00 AM EDT Office Visit [address] [address] Ely Sin MD Chronic bilateral low back pain without sciatica (Primary Dx); Chronic pain of right knee; Encounter for screening mammogram for malignant neoplasm of breast 01/06/2025 Travel 01/05/[address] [address] Ely Sin MD chart prep 12/19/2024 3:00 PM EDT Office Visit [address] [address] Xochitl Arshad ANP New daily persistent headache (Primary Dx); Stress; Sleep disturbance 12/19/2024 Travel 12/19/[address] [address] Ely Sin MD Nurse Triage 12/09/2024 Telephone [facility] [address] [place] [address] Ely Sin MD Results 11/23/2024 Telephone [facility] P[facility] [address] [place] [address] Ely Sin MD 11/23/2024 Telephone [facility] [address] [place] [address] Ely Sin MD MRI 11/09/2024 Telephone [facility] [address] [place] [address] Ely Sin MD MRI BRAIN ORDER 11/04/2024 10:00 AM EST Office Visit [address] [address] Ely Sin MD New daily persistent headache (Primary Dx); Dietary counseling; Exercise counseling; Overweight; Temporal pain 11/04/2024 Travel 10/24/2024 Patient Outreach [address] [address] Ely Sin MD Pre-visit Planning ((Unable to reach for PVP screening, LVM)) 10/24/2024 Orders Only [address] [address] Provider, MD Roman from Last 3 Months Immunizations Name Administration Dates Next Due Influenza, IIV3, injectable 07/30/2024 Tdap 06/08/2020 Family History Medical History Relation Name Comments Hypertension Father Melanoma Mother Relation Name Status Comments Father Mother Social History Tobacco Use Types Packs/Day Years Used Date Smoking Tobacco: Never Passive Smoke Exposure: Never Smokeless Tobacco: Never Tobacco Cessation:Counseling Given: Not Answered Alcohol Use Standard Drinks/Week Comments Never 0 (1 standard drink = 0.6 oz pur e alcohol) Depression Answer Date Recorded Patient Health Questionnaire-9 Score 5 12/19/2024 Patient Health Questionnaire-9 Score 5 12/19/2024 Last PHQ-9: Questionnaire Data Not on file 0 12/19/2024 Housing Stability Answer Date Recorded What is your housing situation today? I have vinod bustamante 12/19/[address] you li ve. Do you have problems with any of the following? None of the above 12/19/2024 Food Insecurity Answer Date Recorded Within the past 12 months, y ou worried that your food would run out before you got money to buy more: Never True 12/19/2024 Within the past 12 months,th e food you bought just didn't last and you didn't have enough money to get more: Never True Transportation Answer Date Recorded In the past 12 months, has l ack of transportation kept you from medical appts, meetings, work or from getting things needed for daily living? No 01/06/2025 Utilities Answer Date Recorded In the past 12 months, has t he electric, gas, oil or water company threatened to shut off services in your home? No 12/19/2024 Depression Answer Date Recorded Patient Health Questionnaire-2 Score 1 12/19/2024 Internet Access Answer Date Recorded Internet Access Q1 No 01/06/2025 Internet Access Q2 I do not want or need it 12/20 Comments Unknown Sex and Gender Information Value Date Recorded Sex Assigned at Female 07/07/2024 10:21 AM EDT Legal Sex Female 10:20 AM EDT Gender Identity Female 07/19/2024 11:54 AM EDT Sexual Orientation Straight 07/19/2024 11 :54 AM EDT Last Filed Vital Signs Vital Sign Reading Time Taken Comments Blood Pressure 110/67 01/06/2025 11:09 AM EDT Pulse 85 01/06/2025 11:09 AM EDT Temperature 37 ??C (98.6 ??F) 01/06/2025 11:09 AM EDT Respiratory Rate 14 01/06/2025 11:09 AM EDT Oxygen Saturation 99% 12/19/2024 3:33 PM EDT Inhaled Oxygen Concentration - - Weight 70.1 kg (154 lb 9.6 oz) 01/06/2025 11:09 AM EDT Height 163.8 cm (5' 4.5 ) 01/06/2025 11:09 AM ED T Body Mass Index 26.13 01/06/2025 11:09 AM EDT Plan of Treatment Upcoming Encounters Date Type Department Care Team (Late st Contact Info) Description 02/03/2025 11:15 AM EDT Procedure Visit [facility] [address] [place] [address] Ely Sin MD [address] [place] [address] Health Maintenance Due Date Last Done Comments HIV Screening 1983 Alcohol/Substance Use Screening 1995 Hepatitis C Screening 2001 Hepatitis B Vaccines (1 of 3 - 19+ 3-dose series) 2002 Mammogram 2023 COVID-19 Vaccine (1 - 2023-2 5 season) 2024 Cervical Cancer Screening 03/09/2025 HPV/Cotest 03/09/2025 Pap Smear 03/09/2025 03/09/2020 Family Planning (PISQ) 11/07/2025 11/07/2024 Depression Screening 12/19/2025 12/19/2024, 12/19/2024 SDOH Screening 01/06/2026 01/06/2025 Tobacco Screening 01/06/2026 01/06/2025 DTaP/Tdap/Td Vaccines (2 - T d or Tdap) 06/08/2030 06/08/2020 Zoster Vaccines (1 of 2) 2033 RSV Patients and Patients Aged 60 years or older (1 - [...] age to complete this topic Pneumococcal Vaccine: Pediatrics (0 to 5 Years) and At-Risk Patients (6 to 49) Years) Aged Out No longer eligible b ased on patient's age to complete this topic RSV under 20 months Aged Out No longe r eligible based on patient's age to complete this topic Rotavirus Vaccines Aged Out No longer eligible based on patient's age to complete this topic Procedures Procedure Name Priority Date/Time Associated Diagnosis Comments MR BRAIN W AND WO CONTRAST Routine 11/23/2024 2:34 PM EST New daily persistent headache LIPID PANEL, STANDARD Routine 11/18/2024 11:51 AM EST Overweight TSH W/REFLEX TO FT4 Routine 11/18/2024 1 1:51 AM EST Overweight COMPREHENSIVE METABOLIC PANEL Routine 11/18/2024 11:51 AM EST Overweight HM PAP/HPV Routine 03/09/2020 8:05 AM EDT from Last 3 Months or Most Recently Relevant to Health Maintenance Results * Mr Brain w/ and w/o Contrast (11/23/2024 2:34 PM EST) Anatomical Region Laterality Modality Brain Magnetic Resonan ce 11/23/2024 2:34 PM EST Narrative 11/28/2024 7:16 AM EDT ? [facility] ?[address] ?[place] [address] ? Magnetic Resonance Report ? Signed ? Patient: Koki Ludwig ?MR#: [id number] ?? [id number] ? : 1985 ?Acct:[id number] ? Age/Sex: 39 / F ?ADM Date: 11/23/24 ? Loc: HO.MRI ? Attending Dr: Ely Sin MD ? Ordering Physician: Ely Sin ?? Date of Service: 11/23/24 ?? Procedure(s): MR head/brain wo/w con ?? Accession Number(s): [id number] ? cc: Ely Sin ? EXAMINATION: ??MR BRAIN WITHOUT THEN WITH IV CONTRAST ? HISTORY: ??New daily persistent PERRY x 4 months, gradually increasing in ?? intensity ? TECHNIQUE: ?Sagittal T1, and axial T1, FLAIR, T2, gradient echo, and ?? diffusion weighted MR images of the brain were obtained. ??Subsequently, ?? axial, and coronal T1-weighted images were obtained after the ?? administration of intravenous gadolinium. ??7 mL Gadavist was ?? administered. ? COMPARISON: None ? FINDINGS: ? The brain parenchyma is unremarkable, demonstrating normal garcia/white ?? differentiation. No foci of abnormal signal intensity are identified. ?? The ventricular system is normal in size and configuration. ??There is ?? no mass effect or midline shift. ??No intra or extra-axial fluid ?? collections are identified. There are no foci of restricted diffusion. ? There is no abnormal contrast enhancement. ? Normal vascular flow voids are noted in the basilar and carotid ?? arteries. ??The visualized paranasal sinuses are clear. ? MR/MR head/brain wo/w con ?? IMPRESSION: ? Unremarkable MRI of the brain without and with contrast. ? Electronically signed by: ??Luther Zhang MD ??11/28/2024 07:13 AM EDT ? Dictated By: ?Luther Zhang MD ? Signed By: ?<Electronically signed by Luther Zhang MD in OV> ?11/28/2413 ? DD/ 1434 ? TD/TT: 11/23/24 1502 ? Chemical Maker: ? Procedure Note Ashley Chan - 11/28/2024 [place] [id number] Magnetic Resonance Report Signed Patient: Valerie Ludwig#: [id number] : 1985Acct:[id number] Age/Sex: 39 / FADM Date: 11/23/24 Loc: HO.MRI Attending Dr: Ely Sin MD Ordering Physician: Ely Sin Date of Service: 11/23/24 Procedure(s): MR head/brain wo/w con Accession Number(s): [id number] cc: Ely Sin EXAMINATION: MR BRAIN WITHOUT THEN WITH IV CONTRAST HISTORY: New daily persistent PERRY x 4 months, gradually increasing in intensity TECHNIQUE: Sagittal T1, and axial T1, FLAIR, T2, gradient echo, and diffusion weighted MR images of the brain were obtained. Subsequently, axial, and coronal T1-weighted images were obtained after the administration of intravenous gadolinium. 7 mL Gadavist was administered. COMPARISON: None FINDINGS: The brain parenchyma is unremarkable, demonstrating normal garcia/white differentiation. No foci of abnormal signal intensity are identified. The ventricular system is normal in size and configuration. There is no mass effect or midline shift. No intra or extra-axial fluid collections are identified. There are no foci of restricted diffusion. There is no abnormal contrast enhancement. Normal vascular flow voids are noted in the basilar and carotid arteries. The visualized paranasal sinuses are clear. MR/MR head/brain wo/w con IMPRESSION: Unremarkable MRI of the brain without and with contrast. Electronically signed by: Luther Zhang MD 11/28/2024 07:13 AM EDT RP Dictated By: Luther Zhang MD Signed By: <Electronically signed by Luther Zhang MD in OV> 11/28/24 0713 DD/ 1434 TD/TT: 11/23/24 1502 Chemical Maker: us Ely Sin MD IMG MRI PROCEDURES Edited Resu lt - Final * TSH W/Reflex to FT4 (11/18/2024 11:51 AM EST) TSH reflex Free T4 0.80 0.32 - 4.0 uIU/mL [facility] Blood Venous blood specimen / Unknown 11/18/2024 11:51 AM EST 11/18/2024 2:33 PM EST us Ely Sin MD LAB BLOOD ORDERABLES Final Res ult [facility] [address] [place] [phone] * (ABNORMAL) Lipid Panel, Standard (11/18/2024 11:51 AM EST) Triglycerides 70 <150 mg/dL [facility] Comment:Desirable Triglyceri de: less than 150 mg/dLBorderline High Triglyceride 150-199 mg/dLHigh Triglyceride: 200-499 mg/dLVery High Triglyceride: greater than or equal to 5OO mg/dL Cholesterol 190 <200 mg/dL [facility] Comment:Desirable Cholestero l: less than 200 mg/dLBorderline High Cholesterol: 200-239 mg/dLHigh Cholesterol: greater than 239 mg/dL LDL Cholesterol Calculated 123(H) <100 mg/dL [facility] Comment:Desirable LDL: less than 100 mg/dLNear Optimal/Above Optimal LDL: 110- 129 mg/dLBorderline High LDL: 130-159 mg/dLHigh LDL: 160-189 mg/dLVery High LDL: greater than or equal to 190 mg/dL HDL Cholesterol 53 >40 mg/dL [facility] Comment:Desirable HDL: great er than 40 mg/dL Note: This HDL assay may give artificially low results in patients with liver disease. Blood Venous blood specimen / Unknown 11/18/2024 11:51 AM EST 11/18/2024 2:33 PM EST us Ely Sin MD LAB BLOOD ORDERABLES Final Res ult [facility] [address] [place] [phone] * (ABNORMAL) Comprehensive Metabolic Panel (11/18/2024 11:51 AM EST) Sodium 139 135 - 145 mmol/L [facility] Potassium 4.1 3.3 - 5.1 mmol/L [facility] Chloride 107 96 - 108 mmol/L [facility] Carbon Dioxide 25 22 - 29 mmol/L [facility] Anion Gap 11(L) 12 - 20 [facility] Urea Nitrogen (BUN) 13 9 - 16 mg/dL [facility] Creatinine, Serum 0.63 0.5 - 1.4 mg/dL [facility] Estimated Glomerular Filt Rate >60 [facility] Comment:Chronic Kidney Disea se: Estimated GFR < 60 mL/min/[id number] Kidney Disease: Estimated GFR < 15 mL/min/1.73m2 Glucose 93 60 - 115 mg/dL [facility] Calcium 9.1 8.4 - 10.2 mg/dL [facility] Bilirubin, Total 0.5 0.0 - 1.0 mg/dL [facility] Aspartate Amino Transferase 24 5 - 31 U/L [facility] Alanine Aminotransferase 19 0 - 31 U/L [facility] Total Protein 7.7 6.5 - 8.0 g/dL [facility] Albumin Level 4.1 3.5 - 5.0 g/dL [facility] Alkaline Phosphatase 65 39 - 117 U/L [facility] Blood Venous blood specimen / Unknown 11/18/2024 11:51 AM EST 11/18/2024 2:33 PM EST Ely Sin MD LAB BLOOD ORDERABLES Final Res ult [facility] [address] [place] [phone] * HM PAP/HPV (03/09/2020 8:05 AM EDT) Historical Provider HEALTH MAINTENANCE Final Result from Last 3 Months or Most Recently Relevant to Health Maintenance Insurance [employer] PPO DENTAL - [employer] DENTAL PPO Care Teams Memory Care Program Resident Relationship Specialty Start Date End Date Ely Sin MD [address] [place] [address] PCP - General Family Medicine 10/13/24
--- OUTSIDE RECORDS SUMMARY | 2025-01-19 11:05 | XMS_ITS | Encounter Summary ---
Author Organization [employer] Address [address] [place] [address] [address] [place] [address] Care Team Providers Care Cloth Calender Name Role Phone Jake Bird MD Primary Care Prov ider Maya Wood Primary Care Provider [phone] Jake Bidr MD Primary Care Prov ider Ely Sin MD Primary Care Provider [phone] Reason for Visit * Reason Onset Date Comments Created In Error 07/11/2024 Encounter Details Date Type Department Care Team (Late st Contact Info) Description 07/11/2024 Telephone [facility] [address] [place] [phone] Maya Wood FNP [address] [place], [place] [phone] Created In Error Social History Tobacco Use [...] Description 02/03/2025 11:15 AM EDT Procedure Visit [facility] [address] [place] [address] Ely Sin MD [address] [place] [address] documented as of this encounter Visit Diagnoses Not on filedocumented in this encounter Care Teams Cloth Calender Relationship Specialty Start Date End Date Jake Bird MD [address] [place] [address] PCP - General Internal Medicine 07/19/24 09/06/24 Maya Wood FNP [address] [place] [address] PCP - General Family Medicine 09/07/24 10/05/24 Jake Bird MD [address] [place] [address] PCP - General Internal Medicine 10/06/24 10/12/24 Ely Sin MD [address] [place] [address] PCP - General Family Medicine 10/13/24 documented as of this encounter
== END 2025-01-19 09:53 | disposition home or self-care (01) ==
LOC: HO.MAMMO 09:52
PROVIDERS: Visit Provider General Practice
DX: Z13.89 Encounter for screening for other disorder (principal)

== ENCOUNTER 2025-01-31 12:27 | Outpatient (REF) | payer OTHER, SELFPAY ==
--- OUTSIDE RECORDS SUMMARY | 2025-01-31 13:34 | XMS_ITS | Encounter Summary ---
Author Organization [employer] Address [address] [place] [address] [place] [address] Care Team Providers Care Aircraft Metalsmith Name Role Phone Jake Bird MD Primary Care Prov ider Maya Wood Primary Care Provider [phone] Jake Bird MD Primary Care Prov ider Ely Sin MD Primary Care Provider [phone] Encounter Details Date Type Department Care Team ([facility] st Contact Info) Description 08/08/2024 Telephone [facility] PEDS [address] [place], [place] [phone] Jake Bird MD [address] [place], [place] [phone] Social History Tobacco Use Types Packs/Day Years [...] phone call. No documentation. Contact pt at [phone] documented in this encounter Plan of Treatment Upcoming Encounters Date Type Department Care Team (Late st Contact Info) Description 02/03/2025 11:15 AM EDT Procedure Visit [facility] [address] [place] [address] Ely Sin MD [address] [place] [address] documented as of this encounter Visit Diagnoses Not on filedocumented in this encounter Care Teams Aircraft Metalsmith Relationship Specialty Start Date End Date Jake Bird MD [address] [place] [address] PCP - General Internal Medicine 07/19/24 09/06/24 Maya Wood FNP [address] [place] [address] PCP - General Family Medicine 09/07/24 10/05/24 Jake Bird MD [address] [place] [address] PCP - General Internal Medicine 10/06/24 10/12/24 Ely Sin MD [address] [place] [address] PCP - General Family Medicine 10/13/24 documented as of this encounter
--- OUTSIDE RECORDS SUMMARY | 2025-01-31 13:34 | XMS_ITS | Encounter Summary ---
Author Organization [employer] Address [address] [place] [address] 7 [place] [address] Care Team Providers Care Rat Exterminator Name Role Phone Ely Sin MD Primary Care Provider [phone] Encounter Details Date Type Department Care Team (Late st Contact Info) Description 10/24/2024 Orders Only [facility] [address] [place] [phone] ProviderRoman MD Social History Tobacco Use Types [...] Description 02/03/2025 11:15 AM EDT Procedure Visit [facility] [address] [place] [phone] Ely Sin MD [address] [place] [phone] documented as of this encounter Procedures Procedure Name Priority Date/Time Associated Diagnosis Comments HM PAP/HPV Routine 03/09/2020 8:05 AM EDT documented in this encounter Results * HM PAP/HPV (03/09/2020 8:05 AM EDT) us Historical Provider HEALTH MAINTENANCE Final Result documented in this encounter Visit Diagnoses Not on filedocumented in this encounter Care Teams Rat Exterminator Relationship Specialty Start Date End Date Ely Sin MD [address] [place] [address] PCP - General Family Medicine 10/13/24 documented as of this encounter
--- OUTSIDE RECORDS SUMMARY | 2025-01-31 13:34 | XMS_ITS | Clinical Summary ---
Author Organization [employer] Address [address] [place] [address] 7 [place] [address] Care Team Providers Care Waiter/Waitress Take Out Name Role Phone Ely Sin MD Primary Care Provider [phone] Allergies Active Allergy Reactions Criticality Noted Date Comments Aspirin Medium 03/09/2020 [place] Oil Unknown 11/07/2024 orange juice Penicillins 09/26/2019 [...] Description 01/06/2025 11:00 AM EDT Office Visit [address] [address] Ely Sin MD Chronic bilateral low back pain without sciatica (Primary Dx); Chronic pain of right knee; Encounter for screening mammogram for malignant neoplasm of breast 01/06/2025 Travel 01/05/[address] [address] Ely Sin MD chart prep 12/19/2024 3:00 PM EDT Office Visit [address] [address] Xochitl Arshad ANP New daily persistent headache (Primary Dx); Stress; Sleep disturbance 12/19/2024 Travel 12/19/[address] [address] Ely Sin MD Nurse Triage 12/09/2024 Telephone [facility] MEDICINE [address] [place] [address] Ely Sin MD Results 11/23/2024 Telephone [facility] MED & PEDS [address] [place] [address] Ely Sin MD 11/23/2024 Telephone [facility] [address] [place] [address] Ely Sin MD MRI 11/09/2024 Telephone [facility] [address] [place] [address] Ely Sin MD MRI BRAIN ORDER 11/04/2024 10:00 AM EST Office Visit [facility] [address] [place] [address] Ely Sin MD New daily persistent headache (Primary Dx); Dietary counseling; Exercise counseling; Overweight; Temporal pain 11/04/2024 Travel from Last 3 Months Immunizations Name Administration [...] is your housing situation today? I have vinodmeliton bustamante 12/19/[address] you [...] Description 02/03/2025 11:15 AM EDT Procedure Visit [facility] [address] [place] [address] Ely Sin MD [address] [place] [address] Health Maintenance Due Date Last Done Comments [...] this topic Meningococcal Vaccine Aged Out No amrvin izabela eligible based on patient's age to [...] EST Narrative 11/28/2024 7:16 AM EDT ? [facility] ?[address] ?[place] [address] ? Magnetic Resonance Report ? Signed ? Patient: Sourav Ludwig ?MR#: [id number] ?? 286 ? : 1985 ?Acct:[id number] ? Age/Sex: 39 / F ?ADM Date: 11/23/24 ? Loc: HO.MRI ? Attending Dr: Ely Sin MD ? Ordering Physician: Ely Sin ?? Date of Service: 11/23/24 ?? Procedure(s): MR head/brain wo/w con ?? Accession Number(s): [id number] ? cc: Ely Sin ? EXAMINATION: ??MR [...] ??Luther Zhang MD ??11/28/2024 07:13 AM EDT ?? RP ? Dictated By: ?Luther Zhang MD ? Signed By: ?<Electronically signed by Luther Zhang MD in OV> ?11/28/24712 ? DD/ 1434 ? TD/TT: 11/23/24 1502 ? Sidewalk Inspector: ? Procedure Note Donkaylanter, Image - 11/28/2024 [place] [address] Magnetic Resonance Report Signed Patient: Sourav LudwigMR#: [id number] 286 : 1985Acct:[id number] Age/Sex: 39 / FADM Date: 11/23/24 Loc: HO.MRI Attending Dr: Ely Sin MD Ordering Physician: Ely Sin Date of Service: 11/23/24 Procedure(s): MR head/brain wo/w con Accession Number(s): [id number] cc: Ely Sin EXAMINATION: MR BRAIN WITHOUT [...] Luther Zhang MD 11/28/2024 07:13 AM EDT Dictated By: Luther Zhang MD Signed By: <Electronically signed by Luther Zhang MD in OV> 11/28/24 0713 DD/ 1434 TD/TT: 11/23/24 1502 Sidewalk Inspector: Ely Sin MD IMG MRI PROCEDURES Edited Resu lt - Final * TSH W/Reflex to FT4 (11/18/2024 11:51 AM EST) TSH reflex Free T4 0.80 0.32 - 4.0 uIU/mL [facility] Blood Venous blood specimen / Unknown 11/18/2024 11:51 AM EST 11/18/2024 2:33 PM EST Ely Sin MD LAB BLOOD ORDERABLES Final Res ult [facility] [address] [place] [address] [phone] * (ABNORMAL) Lipid Panel, Standard (11/18/2024 11:51 AM EST) Triglycerides 70 <150 mg/dL [facility] Comment:Desirable Triglyceri de: less than 150 mg/dLBorderline High Triglyceride 150-199 mg/dLHigh Triglyceride: 200-499 mg/dLVery High Triglyceride: greater than or equal to 5OO mg/dL Cholesterol 190 <200 mg/dL [facility] Comment:Desirable Cholestero l: less than 200 mg/dLBorderline High Cholesterol: 200-239 mg/dLHigh Cholesterol: greater than 239 mg/dL LDL Cholesterol Calculated 123(H) <100 mg/dL [facility] Comment:Desirable LDL: less than 100 mg/dLNear Optimal/Above Optimal LDL: 110- 129 mg/dLBorderline High LDL: 130-159 mg/dLHigh LDL: 160-189 mg/dLVery High LDL: greater than or equal to 190 mg/dL HDL Cholesterol 53 >40 mg/dL [facility] Comment:Desirable HDL: great er than 40 mg/dL Note: This HDL assay may give artificially low results in patients with liver disease. Blood Venous blood specimen / Unknown 11/18/2024 11:51 AM EST 11/18/2024 2:33 PM EST us Ely Sin MD LAB BLOOD ORDERABLES Final Res ult [facility] [address] [place] [phone] [phone] * (ABNORMAL) Comprehensive Metabolic Panel (11/18/2024 11:51 AM EST) Sodium 139 135 - 145 mmol/L [facility] Potassium 4.1 3.3 - 5.1 mmol/L [facility] Chloride 107 96 - 108 mmol/L [facility] Carbon Dioxide 25 22 - 29 mmol/L [facility] Anion Gap 11(L) 12 - 20 [facility] Urea Nitrogen (BUN) 13 9 - 16 mg/dL [facility] Creatinine, Serum 0.63 0.5 - 1.4 mg/dL [facility] Estimated Glomerular Filt Rate >60 [facility] Comment:Chronic Kidney Disea se: Estimated GFR < 60 mL/min/[id number] Kidney Disease: Estimated GFR < 15 mL/min/1.73m2 Glucose 93 60 - 115 mg/dL [facility] Calcium 9.1 8.4 - 10.2 mg/dL [facility] Bilirubin, Total 0.5 0.0 - 1.0 mg/dL [facility] Aspartate Amino Transferase 24 5 - 31 U/L [facility] Alanine Aminotransferase 19 0 - 31 U/L [facility] Total Protein 7.7 6.5 - 8.0 g/dL [facility] Albumin Level 4.1 3.5 - 5.0 g/dL [facility] Alkaline Phosphatase 65 39 - 117 U/L [facility] Blood Venous blood specimen / Unknown 11/18/2024 11:51 AM EST 11/18/2024 2:33 PM EST Ely Sin MD LAB BLOOD ORDERABLES Final Res ult [facility] [address] [place] [address] [phone] * HM PAP/HPV (03/09/2020 8:05 AM EDT) Historical Provider HEALTH MAINTENANCE Final Result from Last 3 Months or Most Recently Relevant to Health Maintenance Insurance [employer] PPO DENTAL - [employer] DENTAL PPO Care Teams Waiter/Waitress Take Out Relationship Specialty Start Date End Date Ely Sin MD [address] [place] [phone] PCP - General Family Medicine 10/13/24
--- OUTSIDE RECORDS SUMMARY | 2025-01-31 13:34 | XMS_ITS | Encounter Summary ---
Author Organization [employer] Address [address] [place] [address] 7t [place] [address] Care Team Providers Care Cellophane Bag Machine Operator Name Role Phone Ely Sin MD Primary Care Provider [phone] Reason for Visit * Reason Onset Date Comments Results 12/09/2024 Encounter Details Date Type Department Care Team ([facility] st Contact Info) Description 12/09/2024 Telephone [facility] MEDICINE [address] [place], [place] [phone] Ely Sin MD [address] [place] [address] Results Social History Tobacco Use Types Packs/Day [facility] [place] Contact pt at [phone] Pt asked if its possible if she doesn't answer the call if the Nurse can leave a Direct Phone number. documented in this encounter Plan of Treatment Upcoming Encounters Date Type Department Care Team (Late st Contact Info) Description 02/03/2025 11:15 AM EDT Procedure Visit [facility] [address] [place], [place] [phone] Ely Sin MD [address] [place] [address] documented as of this encounter Visit Diagnoses Not on filedocumented in this encounter Care Teams Cellophane Bag Machine Operator Relationship Specialty Start Date End Date Ely iSn MD [address] [place], [place] [phone] PCP - General Family Medicine 10/13/24 documented as of this encounter
--- OUTSIDE RECORDS SUMMARY | 2025-01-31 13:34 | XMS_ITS | Encounter Summary ---
Author Organization [employer] Address [address] [place] [address] Care Team Providers Care Sand Miller Name Role Phone Jake Bird MD Primary Care Prov ider Maya Wood Primary Care Provider [phone] Jake Bird MD Primary Care Prov ider Ely Sin MD Primary Care Provider Reason for Visit * Reason Onset Date Comments Referral 08/15/2024 Encounter Details Date Type Department Care Team (Late st Contact Info) Description 08/15/2024 Telephone [facility] MED & PEDS [address] [place], [place] [phone] Jake Bird MD [address] [place], [place] [phone] Referral Social History Tobacco Use Types Packs/Day [...] pt requesting status on neurology referral . Surveyor Mine informed referral was not able to be processed due to needing more information by pcp. Please call pt to clarify. documented in this encounter Plan of Treatment Upcoming Encounters Date Type Department Care Team (Late st Contact Info) Description 02/03/2025 11:15 AM EDT Procedure Visit [facility] [address] [place], [place] [phone] Ely Sin MD [address] [place] [address] documented as of this encounter Visit Diagnoses Not on filedocumented in this encounter Care Teams Sand Miller Relationship Specialty Start Date End Date Jake Bird MD [address] [place] [address] PCP - General Internal Medicine 07/19/24 09/06/24 Maya Wood FNP [address] [place] [address] PCP - General Family Medicine 09/07/24 10/05/24 Jake Bird MD [address] [place] [address] PCP - General Internal Medicine 10/06/24 10/12/24 Ely Sin MD [address] [place] [address] PCP - General Family Medicine 10/13/24 documented as of this encounter
--- OUTSIDE RECORDS SUMMARY | 2025-01-31 13:34 | XMS_ITS | Encounter Summary ---
Author Organization [employer] Address [address] [place] [address] 7 [place] [address] Care Team Providers Care Family Sociologist Name Role Phone Jake Bird MD Primary Care Prov ider Maya Wood Primary Care Provider [phone] Jake Bird MD Primary Care Prov ider Ely Sin MD Primary Care Provider [phone] Reason for Visit * Reason Onset Date Comments Created In Error 07/11/2024 Encounter Details Date Type Department Care Team (Late st Contact Info) Description 07/11/2024 Telephone [facility] MEDICINE [address] [place] [phone] Maya Wood FNP [address] [place], [place] [phone] Created In Error Social History Tobacco Use [...] Description 02/03/2025 11:15 AM EDT Procedure Visit [facility] [address] [place] [address] Ely Sin MD [address] [place] [address] documented as of this encounter Visit Diagnoses Not on filedocumented in this encounter Care Teams Family Sociologist Relationship Specialty Start Date End Date Jake Bird MD [address] [place] [address] PCP - General Internal Medicine 07/19/24 09/06/24 Maya Wood FNP [address] [place] [address] PCP - General Family Medicine 09/07/24 10/05/24 Jake Bird MD [address] [place] [address] PCP - General Internal Medicine 10/06/24 10/12/24 Ely Sin MD [address] [place] [address] PCP - General Family Medicine 10/13/24 documented as of this encounter
--- OUTSIDE RECORDS SUMMARY | 2025-01-31 13:34 | XMS_ITS | Encounter Summary ---
Author Organization [employer] Address [address] [place] [address] [place] [address] Care Team Providers Care Solution Sales Senior Executive Name Role Phone Ely Sin MD Primary Care Provider [phone] Encounter Details Date Type Department Care Team (Late st Contact Info) Description 10/13/2024 Orders Only [facility] MED & PEDS [address] [place] [address] Jake Bird MD [address] [place] [address] Social History Tobacco Use Types Packs/Day Years [...] Description 02/03/2025 11:15 AM EDT Procedure Visit [facility] MEDICINE [address] [place] [address] Ely Sin MD [address] [place] [address] documented as of this encounter Visit Diagnoses Not on filedocumented in this encounter Care Teams Solution Sales Senior Executive Relationship Specialty Start Date End Date Ely Sin MD [address] [place] [address] PCP - General Family Medicine 10/13/24 documented as of this encounter
== END 2025-01-31 12:28 | disposition home or self-care (01) ==
LOC: HO.MAMMO 12:27
PROVIDERS: PCP General Practice; Visit Provider General Practice
DX: Z12.31 Encounter for screening mammogram for malignant neoplasm of breast (principal)
CPT/HCPCS: 77063; 77067

== ENCOUNTER → 2025-01-31 12:30 | Outpatient (BNV) | payer OTHER, SELFPAY | PROVIDERS: PCP General Practice; Visit Provider Internal Medicine | DX: Z12.31 Encounter for screening mammogram for malignant neoplasm of breast (principal) | CPT/HCPCS: 77063; 77067 ==

== ENCOUNTER 2025-02-03 16:50 | Outpatient (REF) | payer OTHER, SELFPAY ==
--- OUTSIDE RECORDS SUMMARY | 2025-02-03 16:52 | XMS_ITS | Encounter Summary ---
Author Organization [employer] Address [address] [place] [address] [place] [address] Care Team Providers Care Ecclesiastical Worker Name Role Phone Jake Bird MD Primary Care Prov ider Maya Wood Primary Care Provider [phone] Jake Bird MD Primary Care Prov ider Ely Sin MD Primary Care Provider [phone] Encounter Details Date Type Department Care Team ([facility] st Contact Info) Description 08/08/2024 Telephone [facility] CHC MED & PEDS [address] [place], [place] [phone] Jake Bird MD [address] [place], [place] [phone] Social History Tobacco Use Types Packs/Day Years [...] phone call. No documentation. Contact pt at [phone] documented in this encounter Plan of Treatment Not on file documented as of this encounter Visit Diagnoses Not on filedocumented in this encounter Care Teams Ecclesiastical Worker Relationship Specialty Start Date End Date Jake Bird MD [address] [place] [address] PCP - General Internal Medicine 07/19/24 09/06/24 Maya Wood FNP [address] [place] [address] PCP - General Family Medicine 09/07/24 10/05/24 Jake Bird MD [address] [place] [address] PCP - General Internal Medicine 10/06/24 10/12/24 Ely Sin MD [address] [place] [address] PCP - General Family Medicine 10/13/24 documented as of this encounter
--- OUTSIDE RECORDS SUMMARY | 2025-02-03 16:52 | XMS_ITS | Clinical Summary ---
Author Organization [employer] Address [address] [place] [address] 7t [place] [address] Care Team Providers Care Skip Locator Name Role Phone Ely Sin MD Primary Care Provider [phone] Allergies Active Allergy Reactions Criticality Noted Date Comments Aspirin Medium 03/09/2020 [place] Oil Unknown 11/07/2024 orange juice Penicillins 09/26/2019 Other Reaction(s): Other, Theophylline Theophylline 09/26/2019 Tomato Unknown 11/07/2024 tomato allergenic extract Medications * This document contains information received from the source organization and may not represent a complete record from that organization. Vit-Fe Fumarate-FA ( Vitamin) 27-0.8 MG tablet Take 1 tablet by mouth Once per day. 90 tablet 3 02/04/20 25 Active calcium 200 MG tablet Take 1 tablet (200 mg) by mouth Once per day. 90 tablet 3 02/04/20 25 Active ascorbic acid (Vitamin C) 100 MG chewable tablet Chew 1 tablet (100 mg) Once per day. 90 tablet 3 02/04/20 25 Active triamcinolone (Kenalog) 0.1 % cream Apply topically if needed in the morning and at bedtime (pain and swelling). Apply to R shoulder blade 30 g 2 02/04/20 25 Active calcium 200 MG tablet 025 Discontinued(Re order (will not trigger notification to Pharmacy)) ascorbic acid (Vitamin C) 100 MG chewable tablet 025 Discontinued(Re order (will not trigger notification to Pharmacy)) Vit-Fe Fumarate-FA ( Vitamin) 27-0.8 MG tablet 025 Discontinued(Re order (will not trigger notification to Pharmacy)) Active Problems Problem Noted Date Diagnosed Date [...] Hx GERD ? dx in 2000 Encounters * This document contains information received from the source organization and may not represent a complete record from that organization. Date Type Department Care Team Description 02/03/2025 11:15 AM EDT Procedure Visit [address] [address] Ely Sin MD Encounter for screening for cervical cancer (Primary Dx) 02/03/2025 Travel 02/02/[address] [address] Ely Sin MD chart prep 01/06/2025 11:00 AM EDT Office Visit [address] [address] Ely Sin MD Chronic bilateral low back pain without sciatica (Primary Dx); Chronic pain of right knee; Encounter for screening mammogram for malignant neoplasm of breast 01/06/2025 Travel 01/05/[address] [address] Ely Sin MD chart prep 12/19/2024 3:00 PM EDT Office Visit [address] [address] Xochitl Arshad ANP New daily persistent headache (Primary Dx); Stress; Sleep disturbance 12/19/2024 Travel 12/19/[address] [address] Ely Sin MD Nurse Triage 12/09/[address] [address] Ely Sin MD Results 11/23/2024 Telephone [facility] MED & PEDS [address] [place], [place] [phone] Ely Sin MD 11/23/[address] [address] Ely Sin MD MRI 11/09/2024 [facility] Information Management [address] [place] [address] Ely Sin MD MRI BRAIN ORDER from Last 3 Months Immunizations Immunization Administration Dates Next Due Influenza, IIV3, injectable [...] not want or need it 12/20 Comments No Intention Date Recorded Ambivalent about becoming (find ing) 11/04/2024 Sex and Gender Information Value Date Recorded Sex Assigned at Female 07/07/2024 10:21 AM EDT Legal Sex Female 10:20 AM EDT Gender Identity Female 07/19/2024 11:54 AM EDT Sexual Orientation Straight 07/19/2024 11 :54 AM EDT Last Filed Vital Signs Vital Sign Reading Time Taken Comments Blood Pressure 105/64 02/03/2025 11:44 AM EDT Pulse 78 02/03/2025 11:44 AM EDT Temperature 36.1 ??C (96.9 ??F) 02/03/2025 11:44 AM E DT Respiratory Rate 20 02/03/2025 11:44 AM EDT Oxygen Saturation 98% 02/03/2025 11:44 AM EDT Inhaled Oxygen Concentration - - Weight 68.6 kg (151 lb 3.2 oz) 02/03/2025 11:44 AM EDT Height 163.8 cm (5' 4.5 ) 02/03/2025 11:44 AM ED T Body Mass Index 25.55 02/03/2025 11:44 AM EDT Plan of Treatment Health Maintenance Due Date Last Done Comments HIV Screening 1983 Alcohol/Substance Use Screening 1995 Hepatitis C Screening 2001 Hepatitis B Vaccines (1 of 3 - 19+ 3-dose series) 2002 Mammogram 2023 COVID-19 Vaccine (2023-2 5 season) 2024 Cervical Cancer Screening 03/09/2025 HPV/Cotest 03/09/2025 Pap Smear 03/09/2025 03/09/2020 Family Planning (PISQ) 11/07/2025 11/07/2024 Depression Screening 12/19/2025 12/19/2024, 12/19/2024 SDOH Screening 01/06/2026 01/06/2025 Tobacco Screening 02/03/2026 02/03/2025 DTaP/Tdap/Td Vaccines (2 - T d or [...] patient's age to complete this topic Meningococcal B Vaccine Aged Out No l onger eligible based on patient's age to complete [...] EST Narrative 11/28/2024 7:16 AM EDT ? [facility] ?[address] ?[place] [address] ? Magnetic Resonance Report ? Signed ? Patient: Koki Ludwig ?MR#: [id number] ?? 286 ? : 1985 ?Acct:[id number] ? Age/Sex: 39 / F ?ADM Date: 11/23/24 ? Loc: HO.MRI ? Attending Dr: Ely Sin MD ? Ordering Physician: Ely Sin ?? Date of Service: 11/23/24 ?? Procedure(s): MR head/brain wo/w con ?? Accession Number(s): [id number] ? cc: Ely Sin ? EXAMINATION: ??MR [...] signed by Luther Zhang MD in OV> ?11/28/24 0713 ? DD/ 1434 ? TD/TT: 11/23/24 1502 ? Assisted Living Associate: ? Procedure Note Rocio, Image - 11/28/2024 [place] [address] Magnetic Resonance Report Signed Patient: Koki LudwigMR#: [id number] 286 : 1985Acct:[id number] Age/Sex: 39 / FADM Date: 11/23/24 Loc: HO.MRI Attending Dr: Ely Sin MD Ordering Physician: Ely Sin Date of Service: 11/23/24 Procedure(s): MR head/brain wo/w con Accession Number(s): [id number] cc: Ely Sin EXAMINATION: MR BRAIN WITHOUT [...] 11/28/24 0713 DD/ 1434 TD/TT: 11/23/24 1502 Assisted Living Associate: Ely Sin MD IMG MRI PROCEDURES Edited Resu lt - Final * TSH W/Reflex to FT4 (11/18/2024 11:51 AM EST) TSH reflex Free T4 0.80 0.32 - 4.0 uIU/mL [facility] Blood Venous blood specimen / Unknown 11/18/2024 11:51 AM EST 11/18/2024 2:33 PM EST Ely Sin MD LAB BLOOD ORDERABLES Final Res ult [facility] [address] [place] [phone] * (ABNORMAL) Lipid Panel, Standard (11/18/2024 11:51 AM EST) Triglycerides 70 <150 mg/dL [facility] Comment:Desirable Triglyceri de: less than 150 mg/dLBorderline High Triglyceride 150-199 mg/dLHigh Triglyceride: 200-499 mg/dLVery High Triglyceride: greater than or equal to 5OO mg/dL Cholesterol 190 <200 mg/dL [facility] Comment:Desirable Cholestero l: less than 200 mg/dLBorderline High Cholesterol: 200-239 mg/dLHigh Cholesterol: greater than 239 mg/dL LDL Cholesterol Calculated 123(H) <100 mg/dL [facility] Comment:Desirable LDL: less than 100 mg/dLNear Optimal/Above Optimal LDL: 110- 129 mg/dLBorderline High LDL: 130-159 mg/dLHigh LDL: 160-189 mg/dLVery High LDL: greater than or equal to 190 mg/dL HDL Cholesterol 53 >40 mg/dL [facility] Comment:Desirable HDL: great er than 40 mg/dL Note: This HDL assay may give artificially low results in patients with liver disease. Blood Venous blood specimen / Unknown 11/18/2024 11:51 AM EST 11/18/2024 2:33 PM EST us lEy Sin MD LAB BLOOD ORDERABLES Final Res ult [facility] [address] [place] [phone] * (ABNORMAL) Comprehensive Metabolic Panel (11/18/2024 11:51 AM EST) Sodium 139 135 - 145 mmol/L [facility] Potassium 4.1 3.3 - 5.1 mmol/L [facility] Chloride 107 96 - 108 mmol/L [facility] Carbon Dioxide 25 22 - 29 mmol/L [facility] Anion Gap 11(L) 12 - 20 [facility] Urea Nitrogen (BUN) 13 9 - 16 mg/dL [facility] Creatinine, Serum 0.63 0.5 - 1.4 mg/dL [facility] Estimated Glomerular Filt Rate >60 [facility] Comment:Chronic Kidney Disea se: Estimated GFR < 60 mL/min/[id number] Kidney Disease: Estimated GFR < 15 mL/min/1.73m2 Glucose 93 60 - 115 mg/dL [facility] Calcium 9.1 8.4 - 10.2 mg/dL [facility] Bilirubin, Total 0.5 0.0 - 1.0 mg/dL [facility] Aspartate Amino Transferase 24 5 - 31 U/L [facility] Alanine Aminotransferase 19 0 - 31 U/L [facility] Total Protein 7.7 6.5 - 8.0 g/dL [facility] Albumin Level 4.1 3.5 - 5.0 g/dL [facility] Alkaline Phosphatase 65 39 - 117 U/L [facility] Blood Venous blood specimen / Unknown 11/18/2024 11:51 AM EST 11/18/2024 2:33 PM EST Ely Sin MD LAB BLOOD ORDERABLES Final Res ult [facility] [address] [place] [address] [phone] * HM PAP/HPV (03/09/2020 8:05 AM EDT) Historical Provider HEALTH MAINTENANCE Final Result from Last 3 Months or Most Recently Relevant to Health Maintenance Insurance [employer] PPO 12 [facility] [place] [employer]ETNA DENTAL PPO Care Teams Skip Locator Relationship Specialty Start Date End Date Ely Sin MD [address] [place] [phone] PCP - General Family Medicine 10/13/24
--- OUTSIDE RECORDS SUMMARY | 2025-02-03 16:52 | XMS_ITS | Encounter Summary ---
Author Organization [employer] Address [address] [place] [id number] Care Team Providers Care Airplane Navigator Name Role Phone Jake Bird MD Primary Care Prov ider Maya Wood Primary Care Provider [phone] Jake Bird MD Primary Care Prov ider Ely Sin MD Primary Care Provider Reason for Visit * Reason Onset Date Comments Referral 08/15/2024 Encounter Details Date Type Department Care Team (Late st Contact Info) Description 08/15/2024 Telephone [facility] CHC MED & PEDS [address] [place], [place] [phone] Jake Bird MD [address] [place], [place] [phone] Referral Social History Tobacco Use Types Packs/Day [...] pt requesting status on neurology referral . Sped Teacher informed referral was not able to be processed due to needing more information by pcp. Please call pt to clarify. documented in this encounter Plan of Treatment Not on file documented as of this encounter Visit Diagnoses Not on filedocumented in this encounter Care Teams Airplane Navigator Relationship Specialty Start Date End Date Jake Bird MD [address] [place] [address] PCP - General Internal Medicine 07/19/24 09/06/24 Maya Wood FNP [address] [place] [address] PCP - General Family Medicine 09/07/24 10/05/24 Jake Bird MD [address] [place] [address] PCP - General Internal Medicine 10/06/24 10/12/24 Ely Sin MD [address] [place] [address] PCP - General Family Medicine 10/13/24 documented as of this encounter
--- OUTSIDE RECORDS SUMMARY | 2025-02-03 16:52 | XMS_ITS | Encounter Summary ---
Author Organization [employer] Address [address] [place] [address] Care Team Providers Care Sound Ranging Crewmember Name Role Phone Jake Bird MD Primary Care Prov ider Maya Wood Primary Care Provider [phone] Jake Bird MD Primary Care Prov ider Ely Sin MD Primary Care Provider [phone] Reason for Visit * Reason Onset Date Comments Created In Error 07/11/2024 Encounter Details Date Type Department Care Team (Late st Contact Info) Description 07/11/2024 Telephone [facility] MEDICINE [address] [place], [place] [phone] Maya Wood FNP [address] [place], [place] [phone] Created In Error Social History Tobacco Use Types Packs/Day Years Used Date Smoking Tobacco: Never Assessed Comments Unknown Sex and Gender Information Value Date Recorded Sex Assigned at Female 07/07/2024 10:21 AM EDT Legal Sex Female 10:20 AM EDT Gender Identity Female 07/19/2024 11:54 AM EDT Sexual Orientation Straight 07/19/2024 11 :54 AM EDT documented as of this encounter Plan of Treatment Not on file documented as of this encounter Visit Diagnoses Not on filedocumented in this encounter Care Teams Sound Ranging Crewmember Relationship Specialty Start Date End Date Jake Bird MD [address] [place] [address] PCP - General Internal Medicine 07/19/24 09/06/24 Maya Wood FNP [address] [place] [address] PCP - General Family Medicine 09/07/24 10/05/24 Jake Bird MD [address] [place] [address] PCP - General Internal Medicine 10/06/24 10/12/24 Ely Sin MD [address] [place] [address] PCP - General Family Medicine 10/13/24 documented as of this encounter
--- OUTSIDE RECORDS SUMMARY | 2025-02-03 16:52 | XMS_ITS | Encounter Summary ---
Author Organization [employer] Address [address] [place] [address] [address] [place] [address] Care Team Providers Care Escort Service Attendant Name Role Phone Ely Sin MD Primary Care Provider [phone] Reason for Visit * Reason Onset Date Comments Results 12/09/2024 Encounter Details Date Type Department Care Team ([facility] st Contact Info) Description 12/09/2024 Telephone [facility] MEDICINE [address] [place], [place] [phone] Ely Sin MD [address] [place] [address] Results Social History Tobacco Use Types Packs/Day [...] CT Scan Date when done: 11/28/24 Facility: [facility] [place] Contact pt at [phone] Pt asked if its possible if she doesn't answer the call if the Nurse can leave a Direct Phone number. documented in this encounter Plan of Treatment Not on file documented as of this encounter Visit Diagnoses Not on filedocumented in this encounter Care Teams Escort Service Attendant Relationship Specialty Start Date End Date Ely Sin MD [address] [place] [address] PCP - General Family Medicine 10/13/24 documented as of this encounter
--- OUTSIDE RECORDS SUMMARY | 2025-02-03 16:52 | XMS_ITS | Encounter Summary ---
Author Organization [employer] Address [address] [facility] 7t [place] [address] Care Team Providers Care Radiation Oncology Therapist Name Role Phone Ely Sin MD Primary Care Provider [phone] Encounter Details Date Type Department Care Team (Latest Contact Info) Description 02/03/2025 Travel Social History Tobacco Use Types Packs/Day Years Used Date Smoking Tobacco: Never Passive Smoke Exposure: Never Smokeless Tobacco: Never Alcohol Use Standard [...] want or need it 12/20 Comments No Sex and Gender Information Value Date Recorded Sex Assigned at Female 07/07/2024 10:21 AM EDT Legal Sex Female 10:20 AM EDT Gender Identity Female 07/19/2024 11:54 AM EDT Sexual Orientation Straight 07/19/2024 11 :54 AM EDT documented as of this encounter Plan of Treatment Not on file documented as of this encounter Visit Diagnoses Not on filedocumented in this encounter Additional Health Concerns Assessment Noted Time PHQ-9 Depression Total Score: 5 12/20/19 25 4:22 PM EDT documented as of this encounter Care Teams Radiation Oncology Therapist Relationship Specialty Start Date End Date Ely Sin MD [address] [place] [address] PCP - General Family Medicine 10/13/24 documented as of this encounter
--- OUTSIDE RECORDS SUMMARY | 2025-02-03 16:52 | XMS_ITS | Encounter Summary ---
Author Organization [employer] Address [address] [place] [address] 7 [place] [address] Care Team Providers Care Machine Long Goods Helper Name Role Phone Ely Sin MD Primary Care Provider [phone] Encounter Details Date Type Department Care Team ([facility] st Contact Info) Description 10/13/2024 Orders Only [facility] CHC MED & PEDS [address] [place] [address] MosesJake Contreras MD [address] [place] [address] Social History Tobacco Use Types Packs/Day Years [...] on filedocumented in this encounter Care Teams Machine Long Goods Helper Relationship Specialty Start Date End Date Ely Sin MD [address] [place] [address] PCP - General Family Medicine 10/13/24 documented as of this encounter
--- OUTSIDE RECORDS SUMMARY | 2025-02-03 16:52 | XMS_ITS | Encounter Summary ---
Author Organization [email or web address] Address [address] [place] [address] 7[address] [place] [address] Care Team Providers Care Manager Child Name Role Phone Ely Sin MD Primary Care Provider [phone] Encounter Details Date Type Department Care Team (Late st Contact Info) Description 10/24/2024 Orders Only [facility] MEDICINE [address] [place], [place] [phone] Provider, MD Roman Social History Tobacco Use Types Packs/Day Years [...] on file documented as of this encounter Procedures Procedure Name Priority Date/Time Associated Diagnosis Comments HM PAP/HPV Routine 03/09/2020 8:05 AM EDT documented in this encounter Results * HM PAP/HPV (03/09/2020 8:05 AM EDT) Historical Provider HEALTH MAINTENANCE Final Result documented in this encounter Visit Diagnoses Not on filedocumented in this encounter Care Teams Manager Child Relationship Specialty Start Date End Date Ely Sin MD [address] [place], [place] [phone] PCP - General Family Medicine 10/13/24 documented as of this encounter
--- OUTSIDE RECORDS SUMMARY | 2025-02-03 16:52 | XMS_ITS | Encounter Summary ---
Author Organization [employer] Address [address] [place] [address] 7 [place] [address] Care Team Providers Care Puncher Name Role Phone Ely Sin MD Primary Care Provider [phone] Reason for Visit * Reason Onset Date Comments chart prep 02/02/2025 Encounter Details Date Type Department Care Team ([facility] st Contact Info) Description 02/02/2025 Telephone [facility] MEDICINE [address] [place], [place] [phone] Ely Sin MD [address] [place] [address] chart prep Social History Tobacco Use Types Packs/Day Years [...] your housing situation today? I have vinod sing 12/19/[address] you li [...] encounter Miscellaneous Notes * Telephone Encounter - Toyin Chris [place] - 02/02/2025 1:50 PM EDT Chart Prep Labs: done Images: done Referrals: complete ( Mammo done 01/31 report not ready. Vaccines due: Covid Screenings: STI screening Overdue care gaps: PHQ-9, THAI-7, Disability screen, and Tobacco documented in this encounter Plan of Treatment Not on file documented as of this encounter Visit Diagnoses Not on filedocumented in this encounter Additional Health Concerns Assessment Noted Time PHQ-9 Depression Total Score: 5 12/20/19 25 4:22 PM EDT documented as of this encounter Care Teams Puncher Relationship Specialty Start Date End Date Ely Sin MD [address] [place] [address] PCP - General Family Medicine 10/13/24 documented as of this encounter
[2025-02-07 22:28] LABS: Trichomonas (NAAT) NOT DETECTED (NOT DETECTED)
[2025-02-08 01:09] LABS: C. trachomatis RNA TMA NOT DETECTED (NOT DETECTED); N. gonorrhoeae RNA TMA NOT DETECTED (NOT DETECTED)
[2025-02-09 14:13] LABS: HPV Genotype 16 Negative (Negative); HPV Genotype 18 Negative (Negative); HPV High Risk Negative (Negative)
== END 2025-02-03 16:51 | disposition home or self-care (01) ==
LOC: HO.HHCLNP 16:50
PROVIDERS: Visit Provider General Practice
DX: Z12.4 Encounter for screening for malignant neoplasm of cervix (principal); Z11.3 Encounter for screening for infections with a predominantly sexual mode of transmission
CPT/HCPCS: 87491; 87591; 87626; 87661; 88175

== ENCOUNTER 2025-05-10 19:36 | Outpatient (REF) | payer OTHER, SELFPAY ==
--- NOTE | ~2025-05-10 | MR_ITS ---
CLINICAL HISTORY: Chronic pain MR right shoulder without gadolinium Comparison: None provided Findings: No acute fracture or pathologic bone lesion. No significant degenerative changes. Type II acromion without downsloping. No joint effusion. The rotator cuff tendons are intact. The long head of biceps is intact. Glenoid labrum is intact. IMPRESSION: Unremarkable right shoulder MRI. This document has been electronically signed by: Vishal Beaulieu MD on 05/12/2025 09:04:36
== END 2025-05-10 19:37 | disposition home or self-care (01) ==
LOC: HO.MRI 19:36
PROVIDERS: PCP General Practice; Visit Provider General Practice
DX: M25.511 Pain in right shoulder (principal); G89.29 Other chronic pain
CPT/HCPCS: 73221

== ENCOUNTER → 2025-05-10 19:42 | Outpatient (BNV) | payer OTHER, SELFPAY | PROVIDERS: PCP General Practice; Visit Provider Specialist | DX: M25.511 Pain in right shoulder (principal) | CPT/HCPCS: 73221 ==

== ENCOUNTER 2025-06-13 13:07 | Outpatient (AMB) | payer OTHER, SELFPAY ==
--- NOTE | 2025-06-13 13:28 | A.OFFVIS_ITS ---
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 Patient reports ongoing pain for more than a year. She mentions that her pain is on the anterior/lateral aspect of the shoulder and it moves down her whole arm. Patient states that her pain is worse when she is reaching back or out. She has tried Tylenol with mild relief and still having pain after. MPRESSION: Unremarkable right shoulder MRI. 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 Ludwig is a 40-year-old right-hand dominant female who presents to the office today for evaluation of right shoulder pain. She reports that she has had ongoing pain for greater than 1 year. She demonstrates the areas of pain or located along the anterior and lateral aspect of the shoulder and encompasses the whole arm. Additionally, she states that with reaching overhead with both arms she is able to develop numbness and tingling in bilateral upper extremities. She does experience numbness and tingling in the right lower extremity intermittently without specific motions. Patient reports that she had a prior shoulder MRI. [facility] Social History (Updated 06/13/25 @ 13:34 by Jarrod Andersen) Alcohol intake: never Patient Tobacco Use Status: Never used Tobacco Current occupational status: unemployed Current occupation: right hand dominant Review of Systems Const All systems reviewed & are unremarkable except as noted in HPI and below Physical Exam Vital Signs: BMI result Body Mass Index 25.0 Const General: cooperative, healthy appearing and no acute distress Resp Effort & Inspection: normal respiratory effort and able to speak in complete sentences Extrem Other: Right shoulder: Normal to inspection. No ecchymosis, erythema, or edema. Full shoulder ROM in all planes. Negative cross-body reach. Negative empty can. Negative drop arm. Psych Appearance: grossly normal Mental Status: mental status grossly normal Attitude: cooperative Assessment & Plan Assessment & Plan (1) Cervical radiculopathy: Code(s): M54.12 - Radiculopathy, cervical region Category: Medical Plan Ms. Ludwig is a 40-year-old right-hand dominant female who presents to the office today for evaluation of right shoulder pain. She reports that she has had ongoing pain for greater than 1 year. She demonstrates the areas of pain or located along the anterior and lateral aspect of the shoulder and encompasses the whole arm. Additionally, she states that with reaching overhead with both arms she is able to develop numbness and tingling in bilateral upper extremities. She does experience numbness and tingling in the right lower extremity intermittently without specific motions. Patient reports that she had a prior shoulder MRI. While in the office today, I reviewed the MRI of the right shoulder that was obtained on 05/12/2025 which was unremarkable. I discussed these findings with the patient. As the patient has pain that radiates throughout the entire right upper extremity as well as occasional numbness and tingling with more persistent numbness and tingling with moving her arm overhead, I have decided to order an EMG study to further evaluate the integrity of the nerves in the upper extremities and the possibility of C-spine involvement. Patient will follow up with Dr. Bishop after the EMG has been obtained, sooner if needed. X-rays of the right shoulder which were obtained while in the office today and were reviewed by me, Olivia Echols PA-C, revealed no acute abnormalities. Orders: Orders XR shoulder RT min 2V 06/13/25 M25.519 - Pain in unspecified shoulder Coding Level of Care Code New Pt Level 3 (46977) Diagnoses Cervical radiculopathy M54.12
[2025-06-13 13:36] VITALS: BMI 25.0
--- OUTSIDE RECORDS SUMMARY | 2025-06-13 16:03 | XMS_ITS | Encounter Summary ---
Author Organization [employer] Address [address] [place] [address] 7 [place] [address] Care Team Providers Care Tail Worker Name Role Phone Ely Sin MD Primary Care Provider [phone] Reason for Visit * Reason Onset Date Comments Results 12/09/2024 Encounter Details Date Type Department Care Team ([facility] st Contact Info) Description 12/09/2024 Telephone [facility] MEDICINE [address] [place], [place] [phone] Ely Sin MD [address] [place] [address] Results Social History Tobacco Use Types Packs/Day [...] CT Scan Date when done: 11/28/24 Facility: [facility] [place] Contact pt at [phone] Pt asked if its possible if she doesn't answer the call if the Nurse can leave a Direct Phone number. documented in this encounter Plan of Treatment Not on file documented as of this encounter Visit Diagnoses Not on filedocumented in this encounter Care Teams Tail Worker Relationship Specialty Start Date End Date Ely Sin MD [address] [place] [address] PCP - General Family Medicine 10/13/24 documented as of this encounter
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
--- OUTSIDE RECORDS SUMMARY | 2025-06-13 16:03 | XMS_ITS | Encounter Summary ---
Author Organization [employer] Address [address] [place] [address] Care Team Providers Care Grinding Machine Tender Name Role Phone Jake Bird MD Primary Care Prov ider Maya Wood Primary Care Provider [phone] Jake Bird MD Primary Care Prov ider Ely Sin MD Primary Care Provider [phone] Reason for Visit * Reason Onset Date Comments Referral 08/15/2024 Encounter Details Date Type Department Care Team (Late st Contact Info) Description 08/15/2024 Telephone [facility] PED[facility] [address] [place], [place] [phone] Jake Bird MD [address] [place], [place] [phone] Referral Social History Tobacco Use Types Packs/Day [...] pt requesting status on neurology referral . Lead Simulation Modeling Engineer informed referral was not able to be processed due to needing more information by pcp. Please call pt to clarify. documented in this encounter Plan of Treatment Not on file documented as of this encounter Visit Diagnoses Not on filedocumented in this encounter Care Teams Grinding Machine Tender Relationship Specialty Start Date End Date Jake Bird MD [address] [place] [address] PCP - General Internal Medicine 07/19/24 09/06/24 Maya Wood FNP [address] [place] [address] PCP - General Family Medicine 09/07/24 10/05/24 Jake Bird MD [address] [place] [address] PCP - General Internal Medicine 10/06/24 10/12/24 Ely Sin MD [address] [place] [address] PCP - General Family Medicine 10/13/24 documented as of this encounter
--- OUTSIDE RECORDS SUMMARY | 2025-06-13 16:03 | XMS_ITS | Encounter Summary ---
Author Organization [employer] Address [address] [place] [address] Care Team Providers Care Attendant Sales Name Role Phone Jake Bird MD Primary Care Prov ider Maya Wood Primary Care Provider Jake Bird MD Primary Care Prov ider Ely Sin MD Primary Care Provider [phone] Reason for Visit * Reason Onset Date Comments Created In Error 07/11/2024 Encounter Details Date Type Department Care Team (Late st Contact Info) Description 07/11/2024 Telephone [facility] [address] [place], [place] [phone] Maya Wood FNP [address] [place], [place] [phone] Created In Error Social History Tobacco Use [...] on filedocumented in this encounter Care Teams Attendant Sales Relationship Specialty Start Date End Date Jake Bird MD [address] [place] [address] PCP - General Internal Medicine 07/19/24 09/06/24 Maya Wood FNP [address] [place] [address] PCP - General Family Medicine 09/07/24 10/05/24 Jake Bird MD [address] [place] [address] PCP - General Internal Medicine 10/06/24 10/12/24 Ely Sin MD [address] [place] [address] PCP - General Family Medicine 10/13/24 documented as of this encounter
--- OUTSIDE RECORDS SUMMARY | 2025-06-13 16:03 | XMS_ITS | Encounter Summary ---
Author Organization [employer] Address [address] [place] [address] 7 [place] [address] Care Team Providers Care Mixed Crop Farmer Name Role Phone Ely Sin MD Primary Care Provider Encounter Details Date Type Department Care Team ([facility] st Contact Info) Description 10/13/2024 Orders Only [facility] & PEDS [address] [place], [place] [phone] MosesJake Contreras MD [address] [place] [address] Social History Tobacco Use Types Packs/Day Years [...] on filedocumented in this encounter Care Teams Mixed Crop Farmer Relationship Specialty Start Date End Date Ely Sin MD [address] [place] [address] PCP - General Family Medicine 10/13/24 documented as of this encounter
--- OUTSIDE RECORDS SUMMARY | 2025-06-13 16:03 | XMS_ITS | Encounter Summary ---
Author Organization [employer] Address [address] [place] [address] 7 [place] [address] Care Team Providers Care Behavior Analyst Name Role Phone Ely Sin MD Primary Care Provider [phone] Encounter Details Date Type Department Care Team ([facility] st Contact Info) Description 10/24/2024 Orders Only [facility] [address] [place], [place] [phone] Provider, MD Roman Social History Tobacco Use [...] on filedocumented in this encounter Care Teams Behavior Analyst Relationship Specialty Start Date End Date Ely Sin MD [address] [place], [place] [phone] PCP - General Family Medicine 10/13/24 documented as of this encounter
== END 2025-06-13 13:50 | disposition home or self-care (01) ==
LOC: HO.HOS 13:07
PROVIDERS: PCP General Practice; Visit Provider Physician Assistant
DX: M54.12 Radiculopathy, cervical region (principal)
CPT/HCPCS: 99203

== ENCOUNTER 2025-06-13 13:07 | Outpatient (REF) | payer OTHER, SELFPAY ==
--- NOTE | ~2025-06-13 | XR_ITS ---
CLINICAL HISTORY: M25.519 - Pain in unspecified shoulder 3 views of the right shoulder. COMPARISON: MR right shoulder dated 05/10/25 at 19:51 EDT FINDINGS: Proximal right humerus, the right scapula, and the right clavicle appear intact. Humeral head is appropriately seated in the glenoid. Acromioclavicular joint appears maintained. Visualized portions of the right lung are clear. IMPRESSION: 1. No radiographic evidence of acute injury to the right shoulder. This document has been electronically signed by: Csear Herbert MD on 06/13/2025 16:43:56
== END 2025-06-13 13:08 | disposition home or self-care (01) ==
LOC: HO.HOSX 13:07
PROVIDERS: PCP General Practice; Visit Provider Physician Assistant
DX: M54.12 Radiculopathy, cervical region (principal); M25.511 Pain in right shoulder
CPT/HCPCS: 73030

== ENCOUNTER → 2025-06-13 13:15 | Outpatient (BNV) | payer OTHER, SELFPAY | PROVIDERS: PCP General Practice; Visit Provider Radiology Diagnostic Radiology | DX: M25.511 Pain in right shoulder (principal) | CPT/HCPCS: 73030 ==

== ENCOUNTER 2025-06-23 08:32 | Outpatient (REF) | payer OTHER, SELFPAY ==
--- OUTSIDE RECORDS SUMMARY | 2025-06-26 09:08 | XMS_ITS | Encounter Summary ---
Author Organization [employer] Address [address] [place] [address] 7 [place] [address] Care Team Providers Care Bad Cloth Checker Name Role Phone Ely Sin MD Primary Care Provider [phone] Reason for Visit * Reason Onset Date Comments Results 12/09/2024 Encounter Details Date Type Department Care Team ([facility] st Contact Info) Description 12/09/2024 Telephone [facility] [address] [place], [place] [phone] Ely Sin MD [address] [place] [address] Results Social History Tobacco Use Types Packs/Day [...] CT Scan Date when done: 11/28/24 Facility: [facility] [place] Contact pt at [phone] Pt asked if its possible if she doesn't answer the call if the Nurse can leave a Direct Phone number. documented in this encounter Plan of Treatment Not on file documented as of this encounter Visit Diagnoses Not on filedocumented in this encounter Care Teams Bad Cloth Checker Relationship Specialty Start Date End Date Ely Sin MD [address] [place] [address] PCP - General Family Medicine 10/13/24 documented as of this encounter
--- OUTSIDE RECORDS SUMMARY | 2025-06-26 09:08 | XMS_ITS | Encounter Summary ---
Author Organization [employer] Address [address] [place] [address] Care Team Providers Care Painter Ski Edge Name Role Phone Jake Bird MD Primary Care Prov ider Maya Wood Primary Care Provider [phone] Jake Bird MD Primary Care Prov ider Ely Sin MD Primary Care Provider [phone] Reason for Visit * Reason Onset Date Comments Referral 08/15/2024 Encounter Details Date Type Department Care Team (Late st Contact Info) Description 08/15/2024 Telephone [facility] MED & PEDS [address] [place], [place] [phone] Jake Bird MD [address] [place], [place] [phone] Referral Social History Tobacco Use Types Packs/Day [...] pt requesting status on neurology referral . Education Administrative Assistant informed referral was not able to be processed due to needing more information by pcp. Please call pt to clarify. documented in this encounter Plan of Treatment Not on file documented as of this encounter Visit Diagnoses Not on filedocumented in this encounter Care Teams Painter Ski Edge Relationship Specialty Start Date End Date Jake Bird MD [address] [place] [address] PCP - General Internal Medicine 07/19/24 09/06/24 Maya Wood FNP [address] [place] [address] PCP - General Family Medicine 09/07/24 10/05/24 Jake Bird MD [address] [place] [address] PCP - General Internal Medicine 10/06/24 10/12/24 Ely Sin MD [address] [place] [address] PCP - General Family Medicine 10/13/24 documented as of this encounter
--- OUTSIDE RECORDS SUMMARY | 2025-06-26 09:08 | XMS_ITS | Encounter Summary ---
Author Organization [employer] Address [address] [place] [address] 7 [place] [address] Care Team Providers Care Manufacturing Technologist Name Role Phone Ely Sin MD Primary Care Provider [phone] Encounter Details Date Type Department Care Team ([facility] st Contact Info) Description 10/24/2024 Orders Only [facility] [address] [place], [place] [phone] Provider, MD Roman Social History Tobacco Use [...] on filedocumented in this encounter Care Teams Manufacturing Technologist Relationship Specialty Start Date End Date Ely Sin MD [address] [place], [place] [phone] PCP - General Family Medicine 10/13/24 documented as of this encounter
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
--- OUTSIDE RECORDS SUMMARY | 2025-06-26 09:08 | XMS_ITS | Encounter Summary ---
Author Organization [employer] Address [address] [place] [address] 7 [place] [address] Care Team Providers Care Internal Grinder Tender Name Role Phone Ely Sin MD Primary Care Provider Encounter Details Date Type Department Care Team ([facility] st Contact Info) Description 10/13/2024 Orders Only [facility] [address] [place], [place] [phone] MosesJake Contreras MD [address] [place] [address] Social History Tobacco Use Types Packs/Day Years [...] on filedocumented in this encounter Care Teams Internal Grinder Tender Relationship Specialty Start Date End Date Ely Sin MD [address] [place] [address] PCP - General Family Medicine 10/13/24 documented as of this encounter
--- OUTSIDE RECORDS SUMMARY | 2025-06-26 09:09 | XMS_ITS | Encounter Summary ---
Author Organization [employer] Address [address] [place] [address] Care Team Providers Care Pan Dumper Name Role Phone Jake [place] MD Primary Care Prov ider Maya Wood Primary Care Provider [phone] Jake [place] MD Primary Care Prov ider Ely Sin MD Primary Care Provider [phone] Reason for Visit * Reason Onset Date Comments Created In Error 07/11/2024 Encounter Details Date Type Department Care Team (Late st Contact Info) Description 07/11/2024 Telephone [facility] [address] [place], [place] [phone] Maya Wood FNP [address] [place], [place] [phone] Created In Error Social History Tobacco Use [...] on filedocumented in this encounter Care Teams Pan Dumper Relationship Specialty Start Date End Date Jake [place] MD [address] [place] [address] PCP - General Internal Medicine 07/19/24 09/06/24 Maya Wood FNP [address] [place] [address] PCP - General Family Medicine 09/07/24 10/05/24 Jake [place] MD [address] [place] [phone] PCP - General Internal Medicine 10/06/24 10/12/24 Ely Sin MD [address] [place] [address] PCP - General Family Medicine 10/13/24 documented as of this encounter
== END 2025-06-23 08:33 | disposition home or self-care (01) ==
LOC: HO.HOSX 08:32
PROVIDERS: Visit Provider Physician Assistant
DX: Z13.89 Encounter for screening for other disorder (principal)